=== PATIENT | female | born 1980 | race Caucasian/White ===

== ENCOUNTER → 2018-06-23 15:46 | Outpatient (CLI) | payer MEDICAID, SELFPAY ==
[2018-06-23 17:34] LABS: Amphetamine Urine VISTA NEGATIVE (<1000 ng/mL); Barbiturate Urine VISTA NEGATIVE (< 200 ng/mL); Benzodiazepine Urine VISTA NEGATIVE (< 200 ng/mL); Cocaine Urine VISTA NEGATIVE (< 300 ng/mL); Ecstacy Urine VISTA NEGATIVE (< 500 ng/mL); Methadone Urine VISTA NEGATIVE (< 300 ng/mL); PCP Urine VISTA NEGATIVE (< 25 ng/mL); THC Urine VISTA POSITIVE (< 50 ng/mL); Vista UDS pH Range 7
== END ==
PROVIDERS: Visit Provider Obstetrics & Gynecology
DX: N39.0 Urinary tract infection, site not specified (principal); R10.2 Pelvic and perineal pain
CPT/HCPCS: 80307; 87086

== ENCOUNTER 2018-07-20 14:37 | Emergency (ER) | payer MEDICAID, SELFPAY ==
[2018-07-20 14:38] VITALS: BP 127/77; PULSE 89; RESP 16; TEMP 35.9; O2SAT 100; BMI 25.6
--- NOTE | 2018-07-20 14:50 | RAD_ITS ---
STUDY: X-RAY - LEFT FOOT CLINICAL: Female, 37 years old. Pain following injury. TECHNIQUE: view(s) of the foot. COMPARISON: None. FINDINGS: Normal talus, calcaneus, and tarsal bones. Normal visualized subtalar, talonavicular, calcaneocuboid, tarsal and tarsometatarsal articulations. Normal metatarsi. Normal metatarsophalangeal joint of the great toe. Normal tibial and fibular sesamoid bones. Normal interphalangeal joint of the great toe. Normal phalanges of the great toe. Normal second through fifth metatarsophalangeal joints. Normal interphalangeal joints and phalanges of the lesser toes. The soft tissue structures are unremarkable. RAD/Foot min 3 Views IMPRESSION: Normal x-ray examination of the foot. Electronically Signed: Abdulkadir Kaufman MD at 15:39 EST Tel [phone], Service support ,
--- NOTE | 2018-07-20 15:22 | ED.VISSUMM ---
- ER Visit Summary Date of Service: 07/20/18 Chief Complaint: Left foot pain secondary to fall History of Present Illness: The patient is a 37 F who presents because of severe left foot pain after she fell down a couple of steps yesterday. She denies paresthesia, anesthesia or motor weakness. She states it hurts to put slipper on. There is no history of gout or pseudogout. She denies knee pain, hip pain upper extremity pain. She denied head trauma. She denies neck pain. Physical Examination: The left foot appears normal. There is pain on the poor proportion to tactile stimulus. DP and PT pulses are palpable. There is no soft tissue swelling, ecchymosis or contusion. There is no subungual hematoma of any toes. There is no pain to palpation of the right patella, joint line and there is no effusion. Full active range of motion of the knee. Test Results: Three-view x-ray of the foot was obtained per nursing protocol and interpreted by me as negative for fracture, subluxation, dislocation or foreign body. Emergency Department Course and Treatment: X-ray per nursing protocol Treatment Plan: Rest, ice, elevation and anti-inflammatories since there is no contraindication Disposition: Discharged home Impression: Left foot strain secondary to fall This note was generated with [employer] dictation software. It may contain incorrect words, spelling, and punctuation that were not noted in review of the chart prior to signing ED Disposition - Plan for ED Patient: Disposition: Home or Assisted Living Chief Complaint: Lower Extremity Injury Instructions: ED Sprain Foot Referrals: Care Physician,No Primary [Primary Care Provider] - Additional Instructions: Take either 4 Advil every 8 hours or 2 Aleve every 12 hours for the next 3-5 days for pain. Apply ice 6-8 times a day for 20-30 minutes per application.
== END 2018-07-20 15:28 | disposition home or self-care (01) ==
PROVIDERS: Emergency Provider Emergency Medicine
DX: S96.912A Strain of unspecified muscle and tendon at ankle and foot level, left foot, initial encounter (principal); W10.9XXA Fall (on) (from) unspecified stairs and steps, initial encounter; Y93.9 Activity, unspecified; Y92.9 Unspecified place or not applicable; Z72.0 Tobacco use
CPT/HCPCS: 73630; 99282

== ENCOUNTER 2019-01-04 18:54 | Emergency (ER) | payer MEDICAID, SELFPAY ==
[2019-01-04 18:55] VITALS: BP 150/90; PULSE 93; RESP 18; TEMP 36.2; O2SAT 100; BMI 25.4
--- NOTE | 2019-01-04 19:07 | CT_ITS ---
STUDY: CT SOFT TISSUE NECK WITH CONTRAST REASON FOR EXAM: Female, 38 years old. Possible epiglottitis RADIATION DOSAGE (If Supplied By Facility): CTDIvol = ( 17.19 ) mGy, DLP = ( 515 ) mGycm TECHNIQUE: The patient was scanned in a multi-detector CT scanner. High resolution transaxial imaging was performed following intravenous administration of 75ML IV Isovue 370. Sagittal and coronal images were reconstructed. Individualized dose optimization techniques were used for this CT. COMPARISON: None. FINDINGS: Normal bilateral parotid glands. 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 Normal bilateral parapharyngeal spaces. Normal bilateral carotid spaces. Normal bilateral sublingual and submandibular glands and spaces. Normal visualized nasopharynx. Normal retropharyngeal space. Normal perivertebral space. Normal visualized bilateral faucial tonsils. The visualized tongue, tongue base and oropharynx are normal. The visualized cervical lymph nodes (levels I-) are within normal size limits, and maintain normal morphology. There is no demonstrated solid or cystic mass lesion. There is no abnormal contrast enhancement. Normal epiglottis, bilateral vallecula and hypopharynx. There is very mild diffuse thickening of the epiglottis with effacement of the paraglottic fat planes which may be consistent with mild epiglottitis.. Normal visualized bilateral piriform sinuses, aryepiglottic folds, vocal cords, and arytenoid-cricoid articulations. Normal subglottic trachea. Normal bilateral lobes of the thyroid gland. Normal visualized pulmonary apices. Normal visualized paranasal sinuses. Normal visualized cervical spine. CT/Soft Tissue Neck WITH Contrast IMPRESSION: Findings which may be consistent with mild epiglottitis. Electronically Signed: Bang Padilla MD at 21:00 EDT , Service support ,
--- NOTE | 2019-01-04 19:11 | ED.DCSUM_ITS ---
- ER Visit Summary Date of Service: 01/04/19 Chief Complaint: Bite suspect insect left shoulder and hoarse voice History of Present Illness: The patient is a 38 F on she had some type of insect bite on her left shoulder which is gotten slightly swollen. And on Friday she is had hoarse voice. No trouble breathing. But states she has a very severe sore throat. She is had a prior tonsillectomy. She denies any severe severe allergic reactions in the past. No drooling. No fever. Physical Examination: Well-appearing female vital signs are stable afebrile. Pulse ox 9% on room air. No respiratory distress. H EENT exam normal. Posterior pharynx no erythema. No exudate. Tonsils have been removed. No trouble swallowing or breathing. No stridor or drooling. She does have a hoarse voice. The tongue and undersurface of her mouth are not swollen. Neck trachea midline. Mildly tender. No lymphadenopathy. No meningismus. Lungs clear to auscultation bilaterally. Heart regular rhythm no murmur. Abdomen soft nontender. Extremities moves all 4. Bilateral her left deltoid as the area was restarted. No abscess. No cellulitis. Normal range of motion bilaterally. Normal strength and sensation. Neurologically she is awake alert with no focal motor deficits. Test Results: CT soft tissue neck shows mild epiglottic swelling. Airways patent. No abscess. Read by the radiologist reviewed by me. Repeat exam patient is doing well at 2300. She was given IV Solu-Medrol prior to the CAT scan due to reported allergy to IV contrast. She was also given a racemic epinephrine aerosol which did help her a little bit. Gave her a glass of water she can drink it easily. It is uncomfortable but she has no trouble swallowing or breathing. There is currently no stridor. She is able to lie supine without any trouble breathing. She is able to drink water. Emergency Department Course and Treatment: Patient's hoarse voice and sore throat out of proportion to exam are somewhat concerning. Her posterior pharynx is normal there is no erythema or exudate. I will obtain imaging to rule out epiglottitis. Treatment Plan: I discussed with the patient at length. She does not want to be admitted. She has had this for the last 4 days. She will be placed on prednisone 40 mg a day for the next 5 days. EpiPen. Return if worse. Disposition: Discharge Impression: Localized allergic reaction left deltoid secondary to insect bite Epiglottic swelling secondary to allergic reaction This note was generated with [employer] dictation software. It may contain incorrect words, spelling, and punctuation that were not noted in review of the chart prior to signing ED Disposition - Plan for ED Patient: Disposition: Home or Assisted Living Instructions: ED Bite Sting Insect Local Allergic React Prescriptions: Prednisone [Deltasone] 40 mg PO DAILY 5 Days tab Additional Instructions: The steroids to decrease the swelling this should progressively get better. If you are getting worse or have trouble swallowing or breathing you need to return to the ER immediately. You have a local allergic reaction to your left arm from what I suspect was an insect bite and you have some mild swelling of your epiglottis seen on CAT scan. If you would get suddenly a lot worse he is a epinephrine pen.
[2019-01-04] MEDS: MethylPREDNISolone 125 MG/2 ML Vial IV (19:29)
[2019-01-04] MEDS: DiphenhydrAMINE 50 MG/ML Syringe 25 MG IV (19:29)
[2019-01-04 21:26] VITALS: BP 102/74; PULSE 78; RESP 16; O2SAT 98
[2019-01-04] MEDS: Racepinephrine HCl 0.5 ML VIAL.NEB. INHALATION (22:22)
[2019-01-04 22:23] VITALS: PULSE 86; RESP 16
[2019-01-04 22:40] VITALS: BP 115/76; PULSE 78; RESP 14; O2SAT 99
--- NOTE | 2019-01-04 23:09 | ED.DEP ---
ED Disposition - Plan for ED Patient: Disposition: Home or Assisted Living Instructions: ED Bite Sting Insect Local Allergic React Prescriptions: Prednisone [Deltasone] 40 mg PO DAILY 5 Days tab Additional Instructions: The steroids to decrease the swelling this should progressively get better. If you are getting worse or have trouble swallowing or breathing you need to return to the ER immediately. You have a local allergic reaction to your left arm from what I suspect was an insect bite and you have some mild swelling of your epiglottis seen on CAT scan. If you would get suddenly a lot worse he is a epinephrine pen.
--- NOTE | 2019-01-04 23:19 | ED.DEP ---
ED Disposition - Plan for ED Patient: Disposition: Home or Assisted Living Instructions: ED Bite Sting Insect Local Allergic React Prescriptions: Prednisone [Deltasone] 40 mg PO DAILY 5 Days tab Referrals: Rico Pickard MD [STAFF PHYSICIAN] - Additional Instructions: The steroids to decrease the swelling this should progressively get better. If you are getting worse or have trouble swallowing or breathing you need to return to the ER immediately. You have a local allergic reaction to your left arm from what I suspect was an insect bite and you have some mild swelling of your epiglottis seen on CAT scan. If you would get suddenly a lot worse he is a epinephrine pen.
[2019-01-04 23:34] VITALS: BP 118/67; PULSE 87; RESP 16; O2SAT 97
== END 2019-01-04 23:39 | disposition home or self-care (01) ==
PROVIDERS: Emergency Provider Emergency Medicine
DX: T63.481A Toxic effect of venom of other arthropod, accidental (unintentional), initial encounter (principal); T78.3XXA Angioneurotic edema, initial encounter; M25.412 Effusion, left shoulder; Y93.9 Activity, unspecified; Y92.9 Unspecified place or not applicable; Z72.0 Tobacco use
CPT/HCPCS: 70491; 94640; 96374; 96375; 99284; Q9967; A4216

== ENCOUNTER 2020-03-22 19:21 | Emergency (ER) | payer MEDICAID, SELFPAY ==
[2020-03-22 19:22] VITALS: BP 129/71; PULSE 90; RESP 16; TEMP 36.6; O2SAT 100; BMI 25.4
--- NOTE | 2020-03-22 19:54 | CT_ITS ---
STUDY: CT ABDOMEN AND PELVIS WITH CONTRAST REASON FOR EXAM: Female, 39 years old. PT STATED RLQ PAIN, ELEVATED WBC, HX TUBAL LIGATION, CSECTION X 2 RADIATION DOSAGE (If Supplied By Facility): CTDIvol = ( 12.79 ) mGy, DLP = ( 612.67 ) mGycm TECHNIQUE: Transaxial images were obtained from the dome of the diaphragm to the symphysis pubis without oral contrast. IV 100mL Isovue-300 was administered. Sagittal and coronal images were reconstructed. Individualized dose optimization techniques were used for this CT. COMPARISON: 10/05/2015 FINDINGS: The visualized lung bases are unremarkable. The visualized portions of the heart are within normal limits. Normal liver. Normal gallbladder and extrahepatic biliary system. Normal spleen. Normal pancreas. Normal bilateral adrenal glands. Normal right kidney. Normal left kidney. Normal visualized stomach. Normal small intestine. Normal colon. The appendix is visualized and appears normal. Normal abdominal aorta. Normal inferior vena cava. Normal retroperitoneum. Normal urinary bladder. Fallopian tube clips. A cluster of cysts are present in the right lower quadrant, likely ovarian and/or adnexal in origin, measuring in total up to 5 x 3.3 cm on image 83 of series 2. Mild free pelvic fluid. Normal abdominal wall. Normal osseous structures. CT/Abdomen/Pelvis W IV Cont ONLY IMPRESSION: Normal appendix. A cluster of cysts are present in the right lower quadrant, likely ovarian and/or adnexal in origin, measuring in total up to 5 x 3.3 centimeters. Mild free pelvic fluid. No evidence of acute intestinal pathology or acute obstructive uropathy. Electronically Signed: Ector Sol MD at 22:13 EDT Tel , Service support ,
[2020-03-22] MEDS: Morphine 4 MG/ML Syringe IV (20:10)
[2020-03-22] MEDS: Ondansetron 4 MG/2 ML Vial IV (20:10)
--- NOTE | 2020-03-22 20:11 | ED.DCSUM_ITS ---
History of Present Illness Chief Complaint: Abd Pain Informant: Patient Onset: Today Context: Sudden Onset Timing: Continuous Quality: Right lower quadrant abdominal pain Location: Right lower quadrant Current Severity: Mild Maximum Severity: Severe Worsened by: Walking Relieved by: Nothing Associated Symptoms: Nausea vomiting subjective fever Narrative: She is a 39-year-old woman with history of ovarian cysts and fibroids who presents with right lower quadrant abdominal pain that started this morning. There is associated with nausea and vomiting. She reports pain with walking and car ride. She reports decreased appetite. She denies URI symptoms. She denies cardiac or respiratory symptoms. She denies dysuria, frequency, urgency or hematuria. She denies vaginal discharge or bleeding. There is no history of trauma. She has not noted a rash. Prior similar symptoms: No Recent Illness/Hospitalization: No - Past Medical History (1) History of ovarian cyst Status: Acute (2) History of uterine fibroid Status: Acute Past Medical History - Allergies and Home Meds Allergies/Adverse Reactions: Allergies coconut Allergy (Verified 01/04/19 23:38) Other FACIAL SWELLING, EYES SWELL SHUT iodine Allergy (Verified 01/04/19 18:56) Hives KIWI Allergy (Uncoded 01/04/19 23:37) Other EYES SWELL SHUT STRAWBERRIES Adverse Reaction (Uncoded 01/04/19 23:37) Other TACHYCARDIA Primary Care Physician: Care Physician,No Primary [Primary Care Provider] - Prior records reviewed: Yes Surgical History: no surgical history Lives: Alone Smoking Status: Current every day smoker Alcohol: Rare Drugs: None Review of Systems General: Reports: Fever, Subjective. Denies: Chills, Malaise, Sweats, Weight loss Eyes: Denies: Visual changes - bilaterally, Blurred Vision - bilaterally ENT: Denies: Bilateral ear pain, Rhinorrhea, Sore throat Cardiovascular: Denies: Chest pain, Palpitations Respiratory: Denies: Dyspnea, Cough, Dyspnea on exertion Gastrointestinal: Reports: Abdominal pain, Nausea, Vomiting. Denies: Diarrhea, Constipation, Melena, Hematochezia Genitourinary: Denies: Dysuria, Hematuria, Frequency Musculoskeletal: Denies: Myalgias, Arthralgias, Neck pain, Back pain, Swelling, Extremity Pain, -, - Skin: Denies: Rash, Wounds Neurological: Denies: Headache, Weakness, Numbness Endocrine: Denies: Polyuria Hematologic: Denies: Easy bruising, Easy bleeding Allergy: Denies: Uticaria Physical Exam Vital Signs/Narrative: Vital Signs Temp Pulse Resp BP Pulse Ox 03/22/20 19:22 97.8 F 90 16 129/71 H 100 Inital Vital Signs reviewed: Yes General: Well nourished, Well developed, No Acute Distress Head: Normocephalic, Atraumatic Eyes: Perrl, EOMI. Negative for: Pale conjunctiva, Scleral icterus ENT: Moist mucous membranes, No rhinorrhea Neck: Supple, Nontender, No lymphadenopathy, No JVD Cardiovascular: Regular rate, Regular rhythm, No murmurs, Normal S1, Normal S2 Respiratory: No distress, CTA bilaterally, Chest nontender Abdomen: Soft, Nondistended, No masses, Tender, Guarding, Rebound tenderness, Hypoactive bowel sounds, Rovsig's sign. Negative for: Nontender, Normal bowel sounds, Hepatomegaly, Splenomegaly, Pulsatile mass, Ventral hernia, Inguinal hernia Rectal: Deferred Back: Nontender, Normal Inspection. Negative for: CVA tenderness Extremities: Nontender, No edema Skin: Normal color, No rash, No Trauma. Negative for: Cyanosis, Diaphoresis, Jaundice Neurological: Alert, Oriented x3, Cranial nerves II-XII grossly intact, Normal Strength, Normal Sensation Psychological: Normal affect, Normal Mood Diagnostic/Tx/Re-eval White count is elevated. test negative. UA negative. CT of the abdo men and pelvis with IV contrast only reveals dilated appendix with independent left. There is fluid noted in the pelvis on the right side with what appears to be a complex ovarian cyst as well. Awaiting formal interpretation by radiologist. Impressions Abdomen/Pelvis CT 03/22/20 19:54 IMPRESSION: Normal appendix. A cluster of cysts are present in the right lower quadrant, likely ovarian and/or adnexal in origin, measuring in total up to 5 x 3.3 centimeters. Mild free pelvic fluid. No evidence of acute intestinal pathology or acute obstructive uropathy. Electronically Signed: Ector Sol MD at 22:13 EDT Tel , Service support , 03/22/20 19:54 Abdomen/Pelvis W IV Cont ONLY [CT] Stat Laboratory Results 03/22/20 03/22/20 03/22/20 20:05 20:05 20:05 WBC 12.0 H RBC 4.19 L Hgb 10.0 L Hct 33.4 L MCV 79.7 L MCH 23.9 L MCHC 29.9 L RDW Std Deviation 50.9 H RDW Coeff of Vicenta 17.7 H Plt Count 339 MPV 8.5 Immature Gran % (Auto) 0.200 Neut % (Auto) 67.0 Lymph % (Auto) 24.5 Mcleod % (Auto) 7.5 Eos % (Auto) 0.6 Baso % (Auto) 0.2 Absolute Neuts (auto) 8.0 H Absolute Lymphs (auto) 2.95 Nucleated RBC % 0 Sodium 140 Potassium 3.6 Chloride 110 H Carbon Dioxide 26.0 Anion Gap 4 L BUN 9 Creatinine 0.75 Estim Creat Clear Calc 86.96 Est GFR (MDRD) Af Amer 111 Est GFR (MDRD) Non-Af 92 BUN/Creatinine Ratio 12.0 Glucose 91 Calcium 9.0 Serum , Qual NEGATIVE Urine Color Urine Clarity Urine pH Ur Specific [place] Urine Protein Urine Glucose (UA) Urine Ketones Urine Occult Blood Urine Nitrite Urine Bilirubin Urine Urobilinogen Ur Leukocyte Esterase Urine RBC Urine WBC Ur Squamous Epith Cells Urine Bacteria Urine Mucus 03/22/20 20:05 WBC RBC Hgb Hct MCV MCH MCHC RDW Std Deviation RDW Coeff of Vicenta Plt Count MPV Immature Gran % (Auto) Neut % (Auto) Lymph % (Auto) Mcleod % (Auto) Eos % (Auto) Baso % (Auto) Absolute Neuts (auto) Absolute Lymphs (auto) Nucleated RBC % Sodium Potassium Chloride Carbon Dioxide Anion Gap BUN Creatinine Estim Creat Clear Calc Est GFR (MDRD) Af Amer Est GFR (MDRD) Non-Af BUN/Creatinine Ratio Glucose Calcium Serum , Qual Urine Color Yellow Urine Clarity Clear Urine pH 7.0 Ur Specific [place] 1.010 Urine Protein Negative Urine Glucose (UA) Normal Urine Ketones Negative Urine Occult Blood Negative Urine Nitrite Negative Urine Bilirubin Negative Urine Urobilinogen Normal Ur Leukocyte Esterase Negative Urine RBC 0 SEEN Urine WBC 0 SEEN Ur Squamous Epith Cells 0 SEEN Urine Bacteria 0 SEEN Urine Mucus 0 SEEN We will treat for ovarian cyst. She was referred to [facility] for follow-up. - Medical Decision Making Diagnosis includes ovarian cyst, degenerative fibroid, appendicitis, mesenteric adenitis, regional enteritis. CT of the abdomen with IV contrast was ordered as well as appropriate blood work including test. Received a fluid bolus and was medicated with Zofran and morphine. After reviewing patient's past medical history and the fact that he will require admission for COPD he was treated with Eliquis 10 mg. ED Disposition - Plan for ED Patient: Disposition: Home or Assisted Living Diagnosis: Complex cyst of right ovary, Rupture of cyst of right ovary Instructions: ED Cyst Ovarian Prescriptions: Naproxen [Naprosyn] 500 mg PO BID #14 tab Transmission Status: Pending to [facility] Referrals: Care Physician,No Primary [Primary Care Provider] - Melanie Broussard MD [STAFF PHYSICIAN] - 3-5 Days if not improving
[2020-03-22 20:14] LABS: Bacteria 0 SEEN /hpf (None Seen); Mucous, Urine 0 SEEN /hpf (<or=2+); Red Blood Cells-Urine 0 SEEN /hpf (0-5); Squamous Epithelial Cells - UA 0 SEEN /hpf (5-10); White Blood Cells 0 SEEN /hpf (0-5)
[2020-03-22 20:18] LABS: Absolute Lymphocyte Count 2.95 X10^3/uL (0.83-4.51); Basophil# 0.03 X10^3/uL; Basophil% 0.2 % (0-1); Eosinophil# 0.07 X10^3/uL; Eosinophils% 0.6 % (0-5); Hematocrit 33.4 % (37-47); Lymphocyte # 2.95 X10^3/ul (4.0); Lymphocyte % 24.5 % (19-41); Mean Corp Hgb Conc 29.9 g/dL (32-36); Mean Corpuscular Hgb 23.9 pg (27.0-32.0); Mean Corpuscular Volume 79.7 fL (81-99); Mean Platelet Vol. 8.5 fl (6.2-12.0); Monocyte% 7.5 % (0-10); NRBC Flagged by Analyzer 0 % (0-5); Neutrophil # 8.04 X10^3/uL (2.7-7.7); Platelet Count 339 K/mm3 (150-450); RBC Distribution Width CV 17.7 % (11.6-14.6); RBC Distribution Width SD 50.9 fl (35.1-43.9); Red Blood Count 4.19 M/mm3 (4.2-5.4)
[2020-03-22 20:24] LABS: Color, Urine Yellow (Yellow); Glucose, Dipstick Normal (Normal); Ketone-Dipstick Negative (Negative); Leukocyte Esterase-Dipstick Negative /ul (Negative); Nitrite-Dipstick Negative (Negative); Occult Blood-Urine Negative /ul (Negative); Protein-Dipstick Negative (Negative); Urine Bilirubin Dipstick Negative (Negative); Urine Clarity Clear (Clear); Urine Urobilinogen Normal (Normal)
[2020-03-22 20:31] LABS: Internal QC Validated? YES +Cl - CLEAR BKGD; Pregnancy, Serum, hCG Quali. NEGATIVE Negative
[2020-03-22 20:34] LABS: Anion Gap 4 (5-15); BUN 9 mg/dL (7-18); Chloride 110 mmol/L (98-107); Creatinine, Serum 0.75 mg/dL (0.55-1.02); EST Glomerular Filtration Rate 92 mL/min (>60); Est Glom Filt Rate - Afr Amer 111 mL/min (>60); Estimated Creatinine Clearance 86.96 ml/min; Glucose 91 mg/dL (74-106); Potassium 3.6 mmol/L (3.5-5.1); Sodium Level 140 mmol/L (136-145)
[2020-03-22] MEDS: MethylPREDNISolone 125 MG/2 ML Vial 60 MG IV (20:49)
[2020-03-22] MEDS: DiphenhydrAMINE 50 MG/ML Syringe 25 MG IV (20:50)
[2020-03-22] MEDS: Famotidine 200 MG/20 ML MDV 20 MG in 0.9% Normal Saline (Pres. free 8 ML 300 MG IV (20:52)
[2020-03-22] MEDS: HYDROcodone Bitartrate/Apap 5/325 Tablet PO (22:46)
== END 2020-03-22 22:53 | disposition home or self-care (01) ==
PROVIDERS: Emergency Provider Emergency Medicine
DX: N83.201 Unspecified ovarian cyst, right side (principal); F17.200 Nicotine dependence, unspecified, uncomplicated
CPT/HCPCS: 74177; 80048; 81001; 84703; 85025; 96361; 96365; 96366; 96375; 99285; J7040; Q9967; A4216; J2405; J3490

== ENCOUNTER 2020-05-09 00:19 | Emergency (ER) | payer MEDICAID, SELFPAY ==
[2020-05-09 00:21] VITALS: BP 104/56; PULSE 82; RESP 16; TEMP 37.2; O2SAT 100; BMI 24.5
--- NOTE | 2020-05-09 00:27 | CT_ITS ---
STUDY: CT BRAIN WITHOUT CONTRAST REASON FOR EXAM: Female, 39 years old. AGUSTIN. NKI RADIATION DOSAGE (If Supplied By Facility): CTDIvol = ( 44.99 ) mGy, DLP = ( 796.11 ) mGycm TECHNIQUE: Transaxial CT imaging of the brain was performed without administration of intravenous contrast material. Individualized dose optimization techniques were used for this CT. COMPARISON: No relevant priors. FINDINGS: Normal soft tissue structures. Normal calvarium. Normal size ventricles and extra-axial spaces for the patient''s age. Normal white matter tracts of the cerebral hemispheres. Normal basal ganglia and thalami. Normal brainstem. Normal cerebellum. There is no intracranial hemorrhage. There are no findings of an acute ischemic infarction. Normal visualized paranasal sinuses. CT/Brain/Head without Contrast IMPRESSION: Normal unenhanced CT scan of the brain. Electronically Signed: John Loo MD at 1:08 EDT , Service support ,
[2020-05-09] MEDS: proCHLORPERazine 10 MG/2 ML Vial IV (00:36)
[2020-05-09] MEDS: DiphenhydrAMINE 50 MG/ML Syringe 25 MG IV (00:36)
[2020-05-09] MEDS: 0.9% Normal Saline 1,000 ML 999 ML IV (00:36)
--- NOTE | 2020-05-09 00:37 | ED.VIS.HA ---
History of Present Illness Chief Complaint: Headache Onset: Today Timing: Intermittent Quality: Similar Prior Headaches, Sharp, Throbbing Current Severity: Moderate Maximum Severity: Severe Associated Symptoms: Nausea, Vomiting, Preceding Aura, Photophobia Narrative: Patient presenting for evaluation secondary to headache. Patient reports that she has prior history of migraine headaches. She states that this started off relatively typical for her. She states that it is a waxing and waning right-sided throbbing sharp type pain. She reports that it started relatively suddenly this morning, but did not reach its maximum severity until about 6 PM tonight. It was not associated with any sort of head injury. No fevers or neck stiffness. Patient states that typically she can sit in a dark room and these headaches will resolve, but this headache was not going away. She did not take anything for it at home. Patient does endorse some auras. No numbness or weakness. No personal or family history of aneurysm. Review of systems otherwise negative. Past Medical History - Allergies and Home Meds Allergies/Adverse Reactions: Allergies coconut Allergy (Verified 05/09/20 00:20) Other FACIAL SWELLING, EYES SWELL SHUT iodine Allergy (Verified 05/09/20 00:20) Hives KIWI Allergy (Uncoded 05/09/20 00:20) Other EYES SWELL SHUT STRAWBERRIES Adverse Reaction (Uncoded 05/09/20 00:20) Other TACHYCARDIA Primary Care Physician: Care Physician,No Primary [Primary Care Provider] - Prior records reviewed: Yes Past Medical History: - - Migraine headaches Surgical History: no surgical history Smoking Status: Current every day smoker Alcohol: None Drugs: None Review of Systems All systems negative except as indicated General: Denies: Chills, Fever, Sweats Eyes: Reports: Visual changes - bilaterally ENT: Denies: Rhinorrhea, Sore throat Cardiovascular: Denies: Chest pain, Palpitations Respiratory: Denies: Dyspnea, Cough, Dyspnea on exertion Gastrointestinal: Reports: Nausea, Vomiting Genitourinary: Denies: Dysuria, Hematuria, Frequency Musculoskeletal: Denies: Back pain, Extremity Pain Skin: Denies: Rash, Wounds Neurological: Reports: Headache. Denies: Weakness, Parasthesia, Numbness Physical Exam Vital Signs/Narrative: Vital Signs Temp Pulse Resp BP Pulse Ox 05/09/20 00:21 98.9 F 82 16 104/56 L 100 Inital Vital Signs reviewed: Yes General: Well nourished, Well developed, - - Uncomfortable appearing female no acute distress Head: NC, AT, Temporary Artery Tenderness - Patient complains of pain over the entirety of the right side of the face with no specific localization over the temporal artery, but is tender in that area. No facial rashes noted. Eyes: Perrl, EOMI, - - Funduscopy was unable to be performed secondary to photophobia ENT: Moist mucous membranes, No rhinorrhea Neck: Supple, No Lymphadenopathy, No JVD, Nontender, No Meningismus Cardiovascular: Regular rate, Regular rhythm, No murmurs Respiratory: No distress, CTA bilaterally, Chest nontender Abdomen: Soft, Nontender, Nondistended, Normal bowel sounds Back: Nontender, Normal Inspection Extremities: Nontender, No edema Skin: Normal color, No rash Neuro: Alert, Oriented x3, Cranial nerves II-XII grossly intact, Normal Strength, Normal Sensation, Normal DTR, Normal Gait Psychological: Normal affect Diagnostic/Tx/Re-eval Clinical Impression(s) from Imaging Studies Brain CT 05/09/20 00:27 IMPRESSION: Normal unenhanced CT scan of the brain. Electronically Signed: John Loo MD at 1:08 EDT , Service support , Laboratory Data 05/09/20 00:35 ESR 36 H - Medical Decision Making Patient presented with a headache. Due to the patient having some localization of pain over hoahaoism ESR was obtained and was found to be negligibly elevated, not indicative of giant cell arteritis. Patient did also state that this was somewhat worse than her typical headaches, so CT scan was ordered and was likewise found to be negative. This was not thunderclap in origin, and does not seem to be a presentation that would be consistent with subarachnoid hemorrhage I do not feel that lumbar puncture is indicated. Patient was administered Compazine and Benadryl as well as fluids initially, and is continuing to have a headache on repeat evaluation at 0115. She was ordered Toradol at that time. Repeat evaluation of the patient at 0144 after administration of Toradol she states that she feels significantly improved. I feel that the patient is safe and appropriate for discharge at this point. She likely had a migraine headache. She was recommended conservative management at home. She will follow-up with primary care. ED Disposition - Plan for ED Patient: Disposition: Home or Assisted Living Diagnosis: Migraine headache Instructions: ED, Migraine (Classical) Referrals: Sana Deng [NON-STAFF] - As Needed
[2020-05-09 00:57] LABS: Erythrocyte Sedimentation Rate 36 mm/hr (0-20)
[2020-05-09] MEDS: Ketorolac 15 MG/ML Vial IV (01:16)
[2020-05-09 01:50] VITALS: BP 105/68; PULSE 68; RESP 15; O2SAT 98
== END 2020-05-09 01:54 | disposition home or self-care (01) ==
PROVIDERS: Emergency Provider Emergency Medicine
DX: G43.909 Migraine, unspecified, not intractable, without status migrainosus (principal); F17.200 Nicotine dependence, unspecified, uncomplicated
CPT/HCPCS: 70450; 85652; 99285; J7030

== ENCOUNTER 2020-07-20 17:06 | Emergency (ER) | payer MEDICAID, SELFPAY ==
[2020-07-20 17:07] VITALS: BP 149/93; PULSE 90; RESP 18; TEMP 36.6; O2SAT 100; BMI 24.0
--- NOTE | 2020-07-20 17:30 | RAD_ITS ---
STUDY: X-RAY CHEST REASON FOR EXAM: Female, 39 years old. fever, dizziness, chest and back pain TECHNIQUE: Single AP portable view of the chest. COMPARISON: 10/23/2015. FINDINGS: The lungs are clear and expanded. There is no demonstrated pleural abnormality. Normal size heart. Normal mediastinum and mercedes. Normal visualized pulmonary arteries. Normal visualized aortic arch and descending thoracic aorta. Normal visualized thoracic spine. Normal visualized ribs, clavicles, and shoulders. There is no demonstrated abnormality of the visualized soft tissue structures of the upper abdomen. RAD/Chest 1 View (Portable) IMPRESSION: Normal x-ray examination of the chest. Electronically Signed: Cory Pastrana MD at 18:23 EST , Service support ,
--- NOTE | 2020-07-20 17:32 | ED.DCSUM_ITS ---
History of Present Illness Chief Complaint: Back Informant: Patient Onset: Yesterday Activity at onset: Unknown - grad onset Timing: Continuous Quality: Pain - initially sharp in left axilla, now heaviness/pressure subster nal and diff pain in left mid-upper back Location: Substernal - see above Current Severity: Moderate Maximum Severity: Moderate Worsened By: Palpation. Not Worsened By: Exertion, Eating, Breathing, Coughing Relieved By: Nothing Associated Symptoms: Cough, Fever - subj. Negative for: Nausea, Vomiting, Diaphoresis, Dyspnea, Lightheadedness, Palpitations Narrative: Patient states she was advised to come here by urgent care due to having chest discomfort. She describes onset in her left axilla being sharp yesterday, and states it never went away, kind of changed and came around to her substernal area and now feels like it is pressure and heaviness. She denies any dyspnea or pleuritic nature. She also has some pain in her left mid back, around from her axillary area of pain, that hurts to lay on her touch. She denies any history of shingles or noticing any rash/lesions. She did have chickenpox when she was a child think she might of also been vaccinated. She is a smoker but otherwise healthy. She presents during the COVID-19 pandemic and has not had it yet, nor been tested, but notes that she did lose her sense of taste and smell since yesterday as well. She has had subjective fevers, myalgias, malaise, no dyspnea. No change in her chronic smoker's cough that she has mostly in the mornings. No GI symptoms. No contact with anyone with COVID-19 that she knows of. Past Medical History - Allergies and Home Meds Allergies/Adverse Reactions: Allergies coconut Allergy (Verified 07/20/20 17:10) Other FACIAL SWELLING, EYES SWELL SHUT iodine Allergy (Verified 07/20/20 17:10) Hives KIWI Allergy (Uncoded 07/20/20 17:10) Other EYES SWELL SHUT STRAWBERRIES Adverse Reaction (Uncoded 07/20/20 17:10) Other TACHYCARDIA Primary Care Physician: Care Physician,No Primary [Primary Care Provider] - Surgical History: no surgical history Smoking Status: Current some day smoker Review of Systems General: Reports: Chills, Fever, Malaise, Subjective. Denies: Sweats Eyes: Denies: Visual changes - bilaterally, Diplopia ENT: Reports: - - +loss of taste/smell. Denies: Bilateral ear pain, Rhinorrhea, Sore throat Cardiovascular: Reports: Chest pain. Denies: Palpitations Respiratory: Reports: Cough - chronic smoker's cough unchanged. Denies: Dyspnea, Sputum, Dyspnea on exertion Gastrointestinal: Denies: Abdominal pain, Nausea, Vomiting, Diarrhea, Melena, Hematochezia Genitourinary: Denies: Dysuria, Hematuria, Frequency Musculoskeletal: Reports: Myalgias, Back pain. Denies: Swelling Skin: Denies: Rash, Wounds Neurological: Denies: Headache, Weakness, Numbness Physical Exam Vital Signs/Narrative: Vital Signs Temp Pulse Resp BP Pulse Ox 07/20/20 17:07 97.8 F 90 18 149/93 H 100 Inital Vital Signs reviewed: Yes General: Well nourished, Well developed, No Acute Distress Head: Normocephalic, Atraumatic Eyes: Perrl, EOMI ENT: Moist mucous membranes, No rhinorrhea Neck: Supple, Nontender, No lymphadenopathy Cardiovascular: Regular rate, Regular rhythm, No murmurs Respiratory: No distress, CTA bilaterally, Chest tenderness - lateral left near and into axilla; no palpable LAD, no skin lesions/rash Abdomen: Soft, Nontender, Nondistended, Normal bowel sounds Back: Normal Inspection - w/ very superficial subjective mod-sv tenderness in skin that stops at midine, around T4 left dermatome. Negative for: CVA tenderness, Spinal tenderness Extremities: Nontender, No edema Skin: Normal color, No rash, No Trauma Neurological: Alert, Oriented x3, Cranial nerves II-XII grossly intact, Normal Strength, Normal Sensation Psychological: Normal affect, Normal Mood Diagnostic/Tx/Re-eval Chest X-Ray - ED: 1 View, Read by ED Physician, No Acute Disease Clinical Impression(s) from Imaging Studies Chest X-Ray 07/20/20 17:30 IMPRESSION: Normal x-ray examination of the chest. Electronically Signed: Cory Pastrana MD at 18:23 EST , Service support , - Rhythm Strip Rhythm Strip: Sinus Rhythm Rate: 73 Ectopy: None - EKG Initial EKG Interpretation: Sinus Rhythm, No Acute Injury Pattern - normal EKG Prior: Unchanged Treatment: GI Cocktail, - - naproxen ALBERT Risk: No Positive ALBERT Elements Score: 0 - Medical Decision Making Patient has symptoms of Covid, in addition to dermatomal sensory pain that is reproducible with very superficial palpation in approximately the left T4 distribution, incomplete as it does not go all the way to the sternum yet. She has no rash to suggest zoster although this is in the differential, as the rash may be delayed and not started yet. We also discussed that thoracic radiculopathy is in the differential diagnosis, although less likely especially without an injury. We performed an outpatient COVID-19 swab, in addition to EKG and troponin, which were normal, and the Covid swab will come back in 3-5 days. Patient was advised to quarantine until then, as she highly likely has Covid. She declared understanding of this, I gave her a GI cocktail and Naprosyn prior to discharge, I recommend anti-inflammatories as needed for the pain, and if she develops a zoster rash to return immediately. ED Disposition - Plan for ED Patient: Disposition: Home or Assisted Living Diagnosis: Chest pain, Sensory abnormality of thoracic dermatome distribution, Suspected 2019-nCoV infection Instructions: Coronavirus Disease 2019 (COVID-19): Overview, ED Chest Pain, Noncardiac, ED Shingles (Herpes Zoster) Referrals: Doctor,Your [STAFF PHYSICIAN] - 1 Week if not improving (or return to ER if you develop a rash left chest/back)
--- NOTE | 2020-07-20 17:32 | EKG12_ITS ---
Test Reason : DYSRHYTHMIA Blood Pressure : / mmHG Vent. Rate : 073 BPM Atrial Rate : 073 BPM P-R Int : 140 ms QRS Dur : 084 ms QT Int : 368 ms P-R-T Axes : 066 028 034 degrees QTc Int : 405 ms Normal sinus rhythm with sinus arrhythmia Normal ECG Confirmed by HERLINDA DEY, OLMAN ([id number]), supervising editor trailer STEVE TERRY ([id number]) on 07/24/2020 1:06:21 PM Referred By: BB Confirmed By:OLMAN PATE MD
[2020-07-20] MEDS: Naproxen 500 MG Tablet PO (19:17)
[2020-07-20] MEDS: Mag Hydrox/Al Hydrox/Simeth 30 ML UDC PO (19:17)
[2020-07-20 19:18] VITALS: BP 130/72; PULSE 68; RESP 15; O2SAT 98
== END 2020-07-20 19:18 | disposition home or self-care (01) ==
PROVIDERS: Emergency Provider Emergency Medicine
DX: R07.9 Chest pain, unspecified (principal); F17.200 Nicotine dependence, unspecified, uncomplicated; Z20.828 Contact with and (suspected) exposure to other viral communicable diseases
CPT/HCPCS: 71045; 87635; 93005; 99283; U0003

== ENCOUNTER 2020-11-04 22:12 | Emergency (ER) | payer MEDICAID, SELFPAY ==
[2020-11-04 22:12] VITALS: BP 121/87; PULSE 120; RESP 18; TEMP 36.2; O2SAT 99; BMI 26.6
[2020-11-04 22:38] LABS: Absolute Lymphocyte Count 2.25 X10^3/uL (0.83-4.51); Absolute Neutrophil Count 11.2 X10^3/uL (2.0-7.7); Basophil# 0.04 X10^3/uL; Basophil% 0.3 % (0-1); Eosinophil# 0.04 X10^3/uL; Eosinophils% 0.3 % (0-5); Hematocrit 34.1 % (37-47); Hemoglobin 10.5 g/dL (12.0-15.0); Lymphocyte # 2.25 X10^3/ul (4.0); Lymphocyte % 15.2 % (19-41); Mean Corp Hgb Conc 30.8 g/dL (32-36); Mean Corpuscular Hgb 24.3 pg (27.0-32.0); Mean Corpuscular Volume 78.9 fL (81-99); Mean Platelet Vol. 8.5 fl (6.2-12.0); Monocyte# 1.22 X10^3/uL; Monocyte% 8.2 % (0-10); NRBC Flagged by Analyzer 0 % (0-5); Neutrophil # 11.22 X10^3/uL (2.7-7.7); Neutrophil % 75.6 % (47-70); Platelet Count 379 K/mm3 (150-450); RBC Distribution Width CV 16.9 % (11.6-14.6); RBC Distribution Width SD 47.9 fl (35.1-43.9); Red Blood Count 4.32 M/mm3 (4.2-5.4); White Blood Count 14.8 K/mm3 (4.4-11.0)
[2020-11-04] MEDS: HYDROmorphone 1 MG/ML Syringe IV (22:40)
[2020-11-04] MEDS: 0.9% Normal Saline 1,000 ML 999 ML IV (22:40)
[2020-11-04] MEDS: Lidocaine 1% (20 ml mdv) 20 ML Vial INFILT (22:41)
[2020-11-04] MEDS: Ondansetron 4 MG/2 ML Vial IV (22:42)
--- NOTE | 2020-11-04 22:48 | ED.DCSUM_ITS ---
- ER Visit Summary Date of Service: 11/04/20 Chief Complaint: Left buttocks abscess History of Present Illness: The patient is a 39 F who is new seen by Dr. Waggoner for left buttocks abscess requiring drainage. Physical Examination: Dose of left buttocks Test Results: Pending Emergency Department Course and Treatment: Patient was informed she needs drainage of the abscess. She was informed what this entailed. The area was prepped. The abscess was anesthetized by local infiltration using 1% lidocaine and field block. Once patient had no sensation incision was made with 10 blade. There is a 2.5 cm incision. Purulent material drained freely from abscess cavity. Blunt dissection was undertaken with more purulent as well as bloody drainage. The cavity was irrigated with 100 cc of normal saline. Wick was pl aced to facilitate further drainage Treatment Plan: Incision and drainage of abscess and antibiotics for streptococcal and staphylococcal coverage. Disposition: Pending laboratory results Impression: [] This note was generated with [employer] dictation software. It may contain incorrect words, spelling, and punctuation that were not noted in review of the chart prior to signing <Taveras,Emmanuel - Last Filed: 11/04/20 23:01> - ER Visit Summary Date of Service: 11/04/20 Chief Complaint: Abscess History of Present Illness: The patient is a 39 F with no primary care physician. She reports she has an abscess in the right buttock that began 4 days ago. She complains of a burning pain is 10 of 10 severity. Is worsened by bumping it. She has not taken anything for pain. She reports that she had a fever for 101.6 degrees. She been nauseated and vomiting over the past 3 days as well. She is vomited 4 times today. No blood in her emesis. She does reports that she had diarrhea twice a day for the past 3 days as well. Review of systems patient complains of generalized weakness. Physical Examination: Vitals: Stable. Afebrile. General: Well-nourished and well-developed. Head: Normocephalic atraumatic. Neck: Supple, no lymphadenopathy. No JVD. Nontender. Cardiovascular: Tachycardic regular rhythm. No murmurs. Respiratory: No respiratory distress. Clear to auscultation bilaterally. Abdominal: Soft, nontender, nondistended, normal bowel sounds. No guarding, rebound, or peritoneal signs. Back: Nontender. Extremities: Nontender, no edema. Skin: In the gluteal cleft on the right side there is an approximately 6 cm indurated/fluctuant area with minimal surrounding erythema. Neurologic: Alert and oriented ?3. Cranial nerves II through XII are intact. Normal strength and sensation. Psych: Normal affect. Test Results: CBC shows a white count of 14.8 with 76 segmented neutrophils and 15 lymphocytes. H&H is 10.5 and 34.1. Chem-7 shows potassium of 3.2. Emergency Department Course and Treatment: Patient had an IV placed. She given 2 L normal saline. She was given Dilaudid, Zofran, and Toradol IV. She is resting more comfortably. She had an I&D performed. She tolerated this well. Treatment Plan: Patient will be discharged with Zofran, Colace, T[place]oli and doxycycline. Instructed follow-up with Dr. Bello in 2 days for a wound check. Return to the emergency department for any worsening symptoms. Disposition: To home in improved and stable condition. Impression: 1. Right gluteal abscess. 2. Incision and drainage. This note was generated with [employer] dictation software. It may contain incorrect words, spelling, and punctuation that were not noted in review of the chart prior to signing <Henok Waggoner - Last Filed: 11/04/20 23:12> ED Disposition <Emmanuel Taveras - Last Filed: 11/04/20 23:01> <Henok Waggoner - Last Filed: 11/04/20 23:12> - Plan for ED Patient: Instructions: ED Abscess Incision And Drainage Prescriptions: Docusate Sodium [Colace] 100 mg PO DAILY #20 capsule Prescription Printed Doxycycline 100 mg PO BID #14 capsule Prescription Printed Oxycodone HCl/Acetaminophen [Percocet 5/325] 1 tablet PO Q6H PRN PRN 3 Days #12 tab PRN Reason: Pain Prescription Printed Ondansetron [Zofran Odt] 4 mg PO Q8H PRN PRN #10 tablet PRN Reason: Nausea Prescription Printed Referrals: Dax Bello MD [STAFF PHYSICIAN] - 2 Days for wound check
[2020-11-04 22:51] LABS: Anion Gap 7 (5-15); BUN 7 mg/dL (7-18); BUN/Creat Ratio 9.2 RATIO (10-20); Calcium,Total 8.9 mg/dL (8.5-10.1); Chloride 104 mmol/L (98-107); Creatinine, Serum 0.76 mg/dL (0.55-1.02); EST Glomerular Filtration Rate 89 mL/min (>60); Est Glom Filt Rate - Afr Amer 108 mL/min (>60); Estimated Creatinine Clearance 85.82 ml/min; Glucose 101 mg/dL (74-106); Potassium 3.2 mmol/L (3.5-5.1); Sodium Level 137 mmol/L (136-145)
[2020-11-04] MEDS: Ketorolac 15 MG/ML Vial IV (23:27)
[2020-11-04 23:42] VITALS: BP 108/60; PULSE 107; RESP 18; O2SAT 96
== END 2020-11-04 23:45 | disposition home or self-care (01) ==
LOC: ED 22:48
PROVIDERS: Emergency Provider Emergency Medicine
DX: L02.31 Cutaneous abscess of buttock (principal); F17.200 Nicotine dependence, unspecified, uncomplicated
CPT/HCPCS: 10060; 80048; 85025; 96374; 96375; 99285; J7030; A4216; J2405

== ENCOUNTER 2020-11-05 18:10 | Observation (INO) | payer MEDICAID, SELFPAY ==
[2020-11-04 22:12] VITALS: BMI 26.6
[2020-11-05 18:12] VITALS: BP 128/71; PULSE 116; RESP 18; TEMP 39.3; O2SAT 98; BMI 27.3
--- NOTE | 2020-11-05 18:26 | ED.DCSUM_ITS ---
- ER Visit Summary Date of Service: 11/05/20 Chief Complaint: Fever with nausea and vomiting status post right buttock abscess I&D yesterday. History of Present Illness: The patient is a 39 F no significant past medical history prior C-sections and tonsillectomy. Patient had a right buttock abscess for about 4 days. Yesterday she presented to this emergency department and had an I&D done. Was discharged home on Keflex. Said she has had nausea vomiting yesterday and today. Has been unable to keep the antibiotic down. She is also having fevers between 101- 103 degrees. She denies any sore throat, chest pain or shortness of breath nor any abdominal pain. She denies any dysuria. Physical Examination: Middle-aged female no acute distress initial temperature is 102.8. She is tachycardic at 116. She does not look septic. She does not look toxic. H EENT exam unremarkable. Neck nontender no lymphadenopathy. Lungs clear to auscultation bilaterally. Heart tachycardic rate about 115 no murmur. Chest wall nontender. Abdomen soft nontender. Normal bowel sounds no peritoneal signs. Patient moving all 4 extremities. No rashes. No pustules. No edema. Back nontender. Her right buttock near the cleft medially there is an I&D. Is been packed. There is no significant cellulitis. Mild tenderness. Neurologically she is awake and alert with no focal motor deficits. Test Results: CBC white count 11.1 hemoglobin 9.5 baseline of 10. No bands. Chemistries unremarkable except potassium running low at 2.8. Normal gap normal BUN and creatinine. Liver enzymes unremarkable UA negative. Lactate 0.8. Chest x-ray no acute process read by myself and the radiologist. Portable 1 view. Emergency Department Course and Treatment: 39-year-old female status post incision and drainage of right buttock abscess yesterday. Has had nausea and vomiting has been unable to keep her antibiotics down. Should labs will be obtained. Should be treated IV fluids. Tylenol for fever and IV Toradol. IV Zofran for the nausea. Rule out sepsis versus other causes of the infection. She will also receive IV and oral potassium. Treatment Plan: Repeat exam patient is doing better at 2110. She is treated with IV fluids Toradol and Tylenol for fever. And IV clindamycin. She was also given Zofran for nausea. Discussed with the patient she states she does not feel good enough to be discharged home. I will speak to the hospitalist about admission. Disposition: Admission Impression: Status post incision and drainage of right buttock abscess Nausea and vomiting with fever Acute hypokalemia This note was generated with [employer] dictation software. It may contain incorrect words, spelling, and punctuation that were not noted in review of the chart prior to signing ED Disposition - Plan for ED Patient: Referrals: Care Physician,No Primary [Primary Care Provider] -
[2020-11-05] MEDS: 0.9% Normal Saline 1,000 ML 1000 ML IV (18:39)
[2020-11-05] MEDS: Ketorolac 30 MG/ML Syringe IV (18:42)
[2020-11-05] MEDS: Ondansetron 4 MG/2 ML Vial IV (18:42)
[2020-11-05] MEDS: Acetaminophen 500 MG Tablet 1000 MG PO (18:43)
[2020-11-05 18:46] LABS: Absolute Lymphocyte Count 0.79 X10^3/uL (0.83-4.51); Absolute Neutrophil Count 9.6 X10^3/uL (2.0-7.7); Basophil# 0.03 X10^3/uL; Basophil% 0.3 % (0-1); Eosinophil# 0.06 X10^3/uL; Eosinophils% 0.5 % (0-5); Hematocrit 31.1 % (37-47); Hemoglobin 9.5 g/dL (12.0-15.0); Lymphocyte # 0.79 X10^3/ul (4.0); Lymphocyte % 7.1 % (19-41); Mean Corp Hgb Conc 30.5 g/dL (32-36); Mean Corpuscular Hgb 24.2 pg (27.0-32.0); Mean Corpuscular Volume 79.3 fL (81-99); Mean Platelet Vol. 8.8 fl (6.2-12.0); Monocyte# 0.58 X10^3/uL; Monocyte% 5.2 % (0-10); NRBC Flagged by Analyzer 0 % (0-5); Neutrophil # 9.63 X10^3/uL (2.7-7.7); Neutrophil % 86.5 % (47-70); Platelet Count 296 K/mm3 (150-450); RBC Distribution Width CV 17.2 % (11.6-14.6); RBC Distribution Width SD 49.5 fl (35.1-43.9); Red Blood Count 3.92 M/mm3 (4.2-5.4); White Blood Count 11.1 K/mm3 (4.4-11.0)
--- NOTE | 2020-11-05 18:54 | RAD_ITS ---
STUDY: X-RAY CHEST REASON FOR EXAM: Female, 39 years old. fever TECHNIQUE: Frontal view of the chest COMPARISON: 20 July 2020 FINDINGS: The lungs are clear and expanded. There is no demonstrated pleural abnormality. Normal size heart. Normal mediastinum and mercedes. Normal visualized pulmonary arteries. Normal visualized aortic arch and descending thoracic aorta. Normal visualized thoracic spine. Normal visualized ribs, clavicles, and shoulders. There is no demonstrated abnormality of the visualized soft tissue structures of the upper abdomen. RAD/Chest 1 View (Portable) IMPRESSION: Normal x-ray examination of the chest. Electronically Signed: Efra Guzman MD at 19:11 EDT Tel , Service support ,
[2020-11-05 18:55] LABS: Mucous, Urine 0 SEEN /hpf (<or=2+); Red Blood Cells-Urine 0 SEEN /hpf (0-5)
[2020-11-05 18:58] LABS: Color, Urine Yellow (Yellow); Glucose, Dipstick Normal (Normal); Ketone-Dipstick Negative (Negative); Leukocyte Esterase-Dipstick 100 /ul (Negative); Nitrite-Dipstick Negative (Negative); Occult Blood-Urine 50 /ul (Negative); Protein-Dipstick 15 mg/dl (Negative); Urine Bilirubin Dipstick Negative (Negative); Urine Clarity Sl. Cloudy (Clear); Urine Urobilinogen Normal (Normal)
[2020-11-05 19:06] LABS: Bacteria RARE /hpf (None Seen); Squamous Epithelial Cells - UA 0-5 SEEN /hpf (5-10); White Blood Cells 0-5 SEEN /hpf (0-5)
[2020-11-05 19:09] LABS: Lactic Acid 0.8 mmol/L (0.4-1.9)
[2020-11-05 19:10] LABS: ALB/GLOB Ratio 0.8 RATIO (0.9-2.4); AST(SGOT) 42 U/L (15-37); Alanine Aminotransfer ALT/SGPT 35 U/L (13-56); Albumin, Serum 3.3 g/dL (3.2-5.0); Alkaline Phosphatase 82 U/L (45-117); Anion Gap 7 (5-15); BUN 5 mg/dL (7-18); BUN/Creat Ratio 7.1 RATIO (10-20); Calcium,Total 8.3 mg/dL (8.5-10.1); Chloride 104 mmol/L (98-107); EST Glomerular Filtration Rate 98 mL/min (>60); Est Glom Filt Rate - Afr Amer 119 mL/min (>60); Estimated Creatinine Clearance 93.17 ml/min; Glucose 97 mg/dL (74-106); Potassium 2.8 mmol/L (3.5-5.1); Protein, Total 7.3 g/dL (6.4-8.2); Sodium Level 136 mmol/L (136-145)
[2020-11-05 19:23] VITALS: BP 103/62; PULSE 101; RESP 17; TEMP 37.3; O2SAT 100
--- NOTE | 2020-11-05 21:32 | HP.PCM_ITS ---
Problem List (1) Abscess Status: Acute (2) Sepsis Status: Acute (3) History of ovarian cyst Status: Chronic (4) History of uterine fibroid Status: Chronic History of Present Illness Date of Admission: 11/05/20 Chief Complaint: Right gluteal boil The patient is a 39 year old F with a significant history of tobacco abuse who presents emergency department with a 4-day history of right gluteal boil. Of note patient was asked the emergency department a day before this presentation. The boil was incised; drained and packed. Patient was discharged home on p.o. antibiotics; pain medication; antiemetics and bowel regimen. However patient returned on the day of presentation (11/06/2019) with a fever. Reportedly her home temperature was 101 Fahrenheit. Further she had headache; nausea and vomiting. Past Medical History Past Medical History (Chronic Problems): Chronic Problems History of ovarian cyst (Chronic) History of uterine fibroid (Chronic) Allergies coconut Allergy (Verified 11/05/20 18:11) Other FACIAL SWELLING, EYES SWELL SHUT iodine Allergy (Verified 11/05/20 18:11) Hives KIWI Allergy (Uncoded 11/05/20 18:11) Other EYES SWELL SHUT STRAWBERRIES Adverse Reaction (Uncoded 11/05/20 18:11) Other TACHYCARDIA Home Medications: Ambulatory Orders Medication Instructions Recorded Docusate Sodium [Colace] 100 mg PO DAILY #20 capsule 11/04/20 Doxycycline 100 mg PO BID #14 capsule 11/04/20 Ondansetron [Zofran Odt] 4 mg PO Q8H PRN PRN #10 tablet 11/04/20 Oxycodone HCl/Acetaminophen 1 tablet PO Q6H PRN PRN 3 Days #12 11/04/20 [Percocet 5/325] tab Surgical History: tonsillectomy, - - . Laparoscopic surgery for ovarian abscess Smoking Status: Current every day smoker Tobacco Use: Cigarettes - *Family History Maternal History Items: Cancer, - - Her mother had bipolar disease; schizophrenia; restless leg syndrome and Parkinson's disease. Review of Systems Constitutional: Reports: Chills, Fever. Denies: Weight Change HEENT: Denies: Head Aches, Sinus Congestion, Sinus Drainage Cardiovascular: Denies: Chest Pain, Palpitations Respiratory: Denies: Cough, Shortness of breath at rest, Sputum production Gastrointestinal: Reports: Nausea, Vomiting. Denies: Abdominal Pain Genitourinary: Denies: Dysuria Musculoskeletal: Denies: Joint Pain, Joint Tenderness Skin: Reports: Wounds - Surgical incision from abscess. Denies: Rash Neurological: Denies: Numbness, Tingling, Focal weakness Psychiatric: Denies: Anxiety, Depression, Homicidal Ideations, Suicidal Ideations Hematologic/ Lymphatic: Denies: Easy Bruising, Easy Bleeding VTE Information - Inpt Only VTE Present on Admission: No VTE Mechan Device Prophylaxis: None VTE Pharm Prophylaxis ordered?: Yes Patient Problems: Active and Suspected Problems Abscess (Acute) Sepsis (Acute) - Physical Exam Vitals/I&O's: Vital Signs Temp Pulse Resp BP Pulse Ox 99.1 F 101 H 17 103/62 100 11/05/20 19:23 11/05/20 19:23 11/05/20 19:23 11/05/20 19:23 11/05/20 19:23 Oxygen Delivery Method Room Air Weight: 72.3 kg Body Mass Index (BMI) 27.3 Intake and Output for Last 24 Hours 11/03/20 11/04/20 11/05/20 23:59 23:59 23:59 Intake Total 1106 / 1106 Balance 1106 / 1106 General: Alert, Oriented x3, Cooperative HEENT: Atraumatic, PERRLA, EOMI, Normocephalic Neck: Supple, No JVD, Negative Carotid Bruits Lungs: Clear to auscultation, Normal air movement Cardiovascular: Regular rate, Normal S1, Normal S2, No murmurs, Tachycardic Abdomen: Bowel Sounds Present, Soft, Non Tender Extremities: No edema, Capillary Refill Less than 3 Seconds Skin: - - Surgical incision in the right gluteal fold with a packed dressing Musculoskeletal: No Tenderness to Palpation of Joints or Extremities Neurological: Cranial nerves II-XII grossly intact Psych/Mental Status: Normal Affect, Appropriate Laboratory Results 11/05/20 18:34: WBC 11.1 H, RBC 3.92 L, Hgb 9.5 L, Hct 31.1 L, MCV 79.3 L, MCH 24.2 L, MCHC 30.5 L, RDW Std Deviation 49.5 H, RDW Coeff of [place] 17.2 H, Plt Count 296, MPV 8.8, Immature Gran % (Auto) 0.400, Neut % (Auto) 86.5 H, Lymph % (Auto) 7.1 L, [place] % (Auto) 5.2, Eos % (Auto) 0.5, Baso % (Auto) 0.3, Absolute Neuts (auto) 9.6 H, Absolute Lymphs (auto) 0.79 L, Nucleated RBC % 0 11/05/20 18:34: Sodium 136, Potassium 2.8 L, Chloride 104, Carbon Dioxide 25.0, Anion Gap 7, BUN 5 L, Creatinine 0.70, Estim Creat Clear Calc 93.17, Est GFR (M DRD) Af Amer 119, Est GFR (MDRD) Non-Af 98, BUN/Creatinine Ratio 7.1 L, Glucose 97, Calcium 8.3 L, Total Bilirubin 0.40, AST 42 H, ALT 35, Alkaline Phosphatase 82, Total Protein 7.3, Albumin 3.3, Globulin 4.0, Albumin/Globulin Ratio 0.8 L 11/05/20 18:34: Lactic Acid 0.8 11/05/20 18:45: Urine Color Yellow, Urine Clarity Sl. Cloudy, Urine pH 6.0, Ur Specific [place] 1.010, Urine Protein 15 H, Urine Glucose (UA) Normal, Urine Ketones Negative, Urine Occult Blood 50 H, Urine Nitrite Negative, Urine Bilirubin Negative, Urine Urobilinogen Normal, Ur Leukocyte Esterase 100 H, Urine RBC 0 SEEN, Urine WBC 0-5 SEEN, Ur Squamous Epith Cells 0-5 SEEN, Urine Bacteria RARE, Urine Mucus 0 SEEN Current Medications Potassium Chloride () 10 meq in 100 mls @ 100 mls/hr IV BOLUS Q1H JEFE Stop: 11/05/20 23:14 Assessment/Plan All Active Problems Abscess (Acute) Sepsis (Acute) Patient is a 39 year old F with a significant history of tobacco abuse who presents emergency department with a 4-day history of right gluteal boil; headache; nausea and vomiting; and with an objective temperature of 102.8F; tachycardia, white count of 11.1 and potassium level of 2.8. Sepsis secondary to gluteal abscess SIRS: criteria patient with T-max of 102.8 Fahrenheit; heart rate of more than 90. I& D a day before presentation. On this new presentation patient was started on IV clindamycin. IV clindamycin will be continued. Received Toradol IV at emergency department and treated on as needed basis. Zofran for antiemetics ordered. Supportive treatment with IV fluids with potassium. Continue wet to dry dressing to incised abscess; change bid Hypokalemia Presented potassium was 2.8. Likely secondary to nausea and vomiting P.o. potassium and IV ordered emergency department. Normal saline with potassium ordered. Tobacco abuse Counseled Declined nicotine patch. DVT prophylaxis Subcutaneous Lovenox ordered. Inpatient E&M: [id number] Init Hosp L3
[2020-11-05 21:40] VITALS: BP 101/62; PULSE 87; RESP 18; TEMP 36.6; O2SAT 96
[2020-11-05] MEDS: Potassium Chloride Oral Tablet 20 MEQ 40 MEQ PO (21:44)
[2020-11-05] MEDS: Potassium Chloride 10mEq/100mL 10 MEQ/100 ML IV.SOLN. 100 MEQ IV BOLUS ×2 (21:46→23:20)
[2020-11-05 22:06] VITALS: BMI 27.1
[2020-11-05 22:15] VITALS: BMI 27.1
[2020-11-05 22:52] VITALS: BP 98/59; PULSE 83; RESP 16; TEMP 36.8; O2SAT 99
[2020-11-05] MEDS: 0.9% Saline Lock 10 ML Syringe IV (23:23)
[2020-11-06] MEDS: Ketorolac 15 MG/ML Vial IV ×2 (03:52→11:17)
[2020-11-06 04:52] VITALS: BP 121/71; PULSE 82; RESP 16; TEMP 37.2; O2SAT 99
[2020-11-06 06:08] LABS: Absolute Lymphocyte Count 0.69 X10^3/uL (0.83-4.51); Basophil# 0.02 X10^3/uL; Basophil% 0.3 % (0-1); Eosinophil# 0.13 X10^3/uL; Eosinophils% 2.1 % (0-5); Hematocrit 30.2 % (37-47); Hemoglobin 8.9 g/dL (12.0-15.0); Lymphocyte # 0.69 X10^3/ul (4.0); Lymphocyte % 11.1 % (19-41); Mean Corp Hgb Conc 29.5 g/dL (32-36); Mean Corpuscular Volume 81.4 fL (81-99); Mean Platelet Vol. 8.5 fl (6.2-12.0); Monocyte# 0.41 X10^3/uL; Monocyte% 6.6 % (0-10); NRBC Flagged by Analyzer 0 % (0-5); Neutrophil # 4.96 X10^3/uL (2.7-7.7); Neutrophil % 79.7 % (47-70); Platelet Count 233 K/mm3 (150-450); RBC Distribution Width CV 17.2 % (11.6-14.6); RBC Distribution Width SD 51.1 fl (35.1-43.9); Red Blood Count 3.71 M/mm3 (4.2-5.4); White Blood Count 6.2 K/mm3 (4.4-11.0)
[2020-11-06 06:47] LABS: Anion Gap 9 (5-15); BUN 6 mg/dL (7-18); BUN/Creat Ratio 9.2 RATIO (10-20); Chloride 110 mmol/L (98-107); Creatinine, Serum 0.65 mg/dL (0.55-1.02); EST Glomerular Filtration Rate 107 mL/min (>60); Est Glom Filt Rate - Afr Amer 129 mL/min (>60); Estimated Creatinine Clearance 100.34 ml/min; Glucose 134 mg/dL (74-106); Potassium 3.2 mmol/L (3.5-5.1); Sodium Level 140 mmol/L (136-145)
[2020-11-06 07:20] VITALS: O2SAT 99
--- NOTE | 2020-11-06 09:20 | CASEMGMT ---
Pt screened using [facility] Palliative Care Tool. Pt did not meet criteria.
[2020-11-06] MEDS: Docusate Sodium 100 MG Capsule PO (10:06)
[2020-11-06 10:15] VITALS: BP 100/62; PULSE 79; RESP 18; TEMP 37; O2SAT 98
--- NOTE | 2020-11-06 11:10 | CASEMGMT ---
ARMANDO WHALEY Assessment: Face to Face with patient for initial transition planning/care coordination assessment. ARMANDO WHALEY introduced self and role at [facility], pt voices understanding and consents to assessment. Pt is lying in bed in no distress. Pt is A/Ox4 and answers all questions appropriately at this time. Care providers, pharmacy, and demographics verified/updated. Admitting Dx: sepsis secondary to gluteal abscess PCP: Pt denies having a PCP. Provided a list of local PCP's and gave to pt. Specialists: Denies. Preferred Pharmacy: [facility] Insurance:[employer] Prescription Benefit:yes Living Will/DPOA: Pt reports she does not have a LW but that she does have a DPOA who is a friend, Gena Kohli. LNOK: friends, Gena and Gurwinder Kohli Living Arrangements:Pt lives with her two children in a ground level apt. She states there is one step to enter and 13 steps with a rail to use the bathroom. Pt denies concerns at home. Pt reports she is I in ADL's. Transportation: Pt does not drive. Her friends drive her or she uses transit. She denies transportation concerns. DME/HHC/SNF: Pt denies having any DME in the home. She denies having HHC or SNF stays previously. Pt states no concerns with going home at time of dc. She states she does have a friend who can do wound care. Pt states no further concerns/needs. CM to follow for any further dc planning/needs. Advised pt to ask for CM if any further questions/concerns/ needs arise, voices understanding. Pt goal: Home Plan: Home. CM to follow for HHC needs. Pt is agreeable to HHC if needed.
[2020-11-06] MEDS: 0.9% Saline Lock 10 ML Syringe IV (11:18)
--- NOTE | 2020-11-06 14:18 | PCM.PN.HOSP ---
Patient Problems: Active and Suspected Problems Abscess (Acute) Sepsis (Acute) Subjective: Patient is a pleasant 39-year-old female who is resting comfortably in bed, alert and oriented x3. Patient reports improvement of symptoms from admission however still reports mild headache, nausea, vomiting. Denies fever, diarrhea, chest pain, shortness of breath, palpitations. Vitals/I&O's: Vital Signs Temp Pulse Resp BP Pulse Ox 98.6 F 79 18 100/62 98 11/06/20 10:15 11/06/20 10:15 11/06/20 10:15 11/06/20 10:15 11/06/20 10:15 Oxygen Delivery Method Room Air Weight: 158 lb 11.725 oz Body Mass Index (BMI) 27.1 Intake and Output for Last 24 Hours 11/04/20 11/05/20 11/06/20 23:59 23:59 23:59 Intake Total 1206 / 1506 2268.5 / 2268.5 Balance 1206 / 1506 2268.5 / 2268.5 General: Alert, Oriented x3, Cooperative HEENT: Atraumatic, PERRLA, EOMI, Normocephalic Neck: Supple, No JVD, Negative Carotid Bruits Lungs: Clear to auscultation, Normal air movement Cardiovascular: Regular rate, No murmurs Abdomen: Bowel Sounds Present, Soft, Non Tender Extremities: No edema, Capillary Refill Less than 3 Seconds Skin: No rashes, No breakdown Musculoskeletal: No Tenderness to Palpation of Joints or Extremities Neurological: Cranial nerves II-XII grossly intact Psych/Mental Status: Normal Affect, Appropriate Laboratory Results 11/05/20 18:34: WBC 11.1 H, RBC 3.92 L, Hgb 9.5 L, Hct 31.1 L, MCV 79.3 L, MCH 24.2 L, MCHC 30.5 L, RDW Std Deviation 49.5 H, RDW Coeff of Vicenta 17.2 H, Plt Count 296, MPV 8.8, Immature Gran % (Auto) 0.400, Neut % (Auto) 86.5 H, Lymph % (Auto) 7.1 L, [place] % (Auto) 5.2, Eos % (Auto) 0.5, Baso % (Auto) 0.3, Absolute Neuts (auto) 9.6 H, Absolute Lymphs (auto) 0.79 L, Nucleated RBC % 0 11/05/20 18:34: Sodium 136, Potassium 2.8 L, Chloride 104, Carbon Dioxide 25.0, Anion Gap 7, BUN 5 L, Creatinine 0.70, Estim Creat Clear Calc 93.17, Est GFR (MDRD) Af Amer 119, Est GFR (MDRD) Non-Af 98, BUN/Creatinine Ratio 7.1 L, Glucose 97, Calcium 8.3 L, Total Bilirubin 0.40, AST 42 H, ALT 35, Alkaline Phosphatase 82, Total Protein 7.3, Albumin 3.3, Globulin 4.0, Albumin/Globulin Ratio 0.8 L 11/05/20 18:34: Lactic Acid 0.8 11/05/20 18:45: Urine Color Yellow, Urine Clarity Sl. Cloudy, Urine pH 6.0, Ur Specific [place] 1.010, Urine Protein 15 H, Urine Glucose (UA) Normal, Urine Ketones Negative, Urine Occult Blood 50 H, Urine Nitrite Negative, Urine Bilirubin Negative, Urine Urobilinogen Normal, Ur Leukocyte Esterase 100 H, Urine RBC 0 SEEN, Urine WBC 0-5 SEEN, Ur Squamous Epith Cells 0-5 SEEN, Urine Bacteria RARE, Urine Mucus 0 SEEN 11/06/20 06:02: WBC 6.2, RBC 3.71 L, Hgb 8.9 L, Hct 30.2 L, MCV 81.4, MCH 24.0 L, MCHC 29.5 L, RDW Std Deviation 51.1 H, RDW Coeff of [place] 17.2 H, Plt Count 233, MPV 8.5, Immature Gran % (Auto) 0.200, Neut % (Auto) 79.7 H, Lymph % (Auto) 11.1 L, [place] % (Auto) 6.6, Eos % (Auto) 2.1, Baso % (Auto) 0.3, Absolute Neuts (auto) 5.0, Absolute Lymphs (auto) 0.69 L, Nucleated RBC % 0 11/06/20 06:02: Sodium 140, Potassium 3.2 L, Chloride 110 H, Carbon Dioxide 21.0, Anion Gap 9, BUN 6 L, Creatinine 0.65, Estim Creat Clear Calc 100.34, Est GFR (MDRD) Af Amer 129, Est GFR (MDRD) Non-Af 107, BUN/Creatinine Ratio 9.2 L, Glucose 134 H, Calcium 8.0 L Current Medications Docusate Sodium (Docusate Sodium 100 Mg Capsule) 100 mg PO DAILY [facility] Last Admin: 11/06/20 10:06 Dose: 100 mg Documented by: Enoxaparin Sodium (Enoxaparin 40 Mg/0.4 Ml Syringe) 40 mg SC DAILY [facility] Last Admin: 11/06/20 10:06 Dose: Not Given Documented by: Potassium Chloride/Sodium Chloride () 1,000 mls @ 75 mls/hr IV .[id number] [facility] Last Infusion: 11/06/20 14:01 Dose: 75 mls/hr Documented by: Sodium Chloride () 250 mls @ 15 mls/hr IV .[id number] PRN PRN Reason: Saline Flush Sodium Chloride () 250 mls @ 15 mls/hr IV .[id number] PRN PRN Reason: Additional IVPB Infusion Ampicillin Sodium/Sulbactam (Sodium 3 gm/ Sodium Chloride) 112 mls @ 150 mls/hr IV Q6 [facility] Last Infusion: 11/06/20 12:57 Dose: Infused Documented by: Ketorolac Tromethamine (Ketorolac 15 Mg/Ml Vial) 15 mg IV Q6H PRN PRN PRN Reason: pain 4-10 Stop: 11/11/20 02:01 Last Admin: 11/06/20 11:17 Dose: 15 mg Documented by: Ondansetron HCl (Ondansetron 4 Mg/2 Ml Vial) 4 mg IV Q8H PRN PRN PRN Reason: NAUSEA/VOMITING Senna/Docusate Sodium (Senna/Docusate Sodium 1 Tablet) 2 tablet PO BID PRN PRN PRN Reason: Constipation Sodium Chloride (0.9% Saline Lock 10 Ml Syringe) 10 - 40 ml IV UD PRN PRN Reason: SALINE FLUSH Last Admin: 11/06/20 11:18 Dose: 10 ml Documented by: Medical Necessity - Tobacco Use Smoking Status: Current every day smoker Tobacco Use: Cigarettes Assessment/Plan All Active Problems Abscess (Acute) Sepsis (Acute) Patient is a 39-year-old female who presented to the ED on 11/05/2020 with a 4-day history of a right gluteal abscess. On admission patient endorsed fever, headache, nausea, vomiting. On my exam patient reported improvement of the symptoms however still endorsed mild headache, nausea, vomiting, weakness. Abscess was incised in the ED and repacked. Upon my examination packing around abscess was unremarkable. No redness, warmth, induration was observed around the packing material. Patient was also found to be hypokalemic at admission, patient's potassium is still low however trending up. Anticipating further improvement in symptoms and potassium, patient will will most likely be discharged tomorrow. 1) Sepsis secondary to gluteal abcess Assessment - Tachycardia and fever have resolved; currently 79 and 98.6 ?F as of this morning - Dressing around abscess appears unremarkable; no redness, swelling, induration, warmth observed - Clindamycin discontinued due to poor anaerobic coverage Plan - Patient initiated on Unasyn 2)Hypokalemia Assessment -Potassium still low at 3.2, however trending upwards Plan - Continue infusion of potassium - Continue to monitor BMP DVT Prophylaxis - SC Lovenox Patient seen by Thien Freeman PA-C, under the supervision of Dr. Zimmerman
--- NOTE | 2020-11-06 16:12 | DCINST_ITS ---
- Discharge Diagnoses Current Active Problems: Current Active and Chronic Problems History of ovarian cyst (Chronic) History of uterine fibroid (Chronic) Abscess (Acute) Sepsis (Acute) You will use the following diet at home:: No restrictions Your food should be the consistency of: Regular Your liquids should be the consistency of: Regular/Thin Discharge Activity: Return to Normal Activity Weight Bearing Status: Full weight bearing Allergies/Adverse Reactions: Allergies coconut Allergy (Verified 11/05/20 18:11) Other FACIAL SWELLING, EYES SWELL SHUT iodine Allergy (Verified 11/05/20 18:11) Hives KIWI Allergy (Uncoded 11/05/20 18:11) Other EYES SWELL SHUT STRAWBERRIES Adverse Reaction (Uncoded 11/05/20 18:11) Other TACHYCARDIA Medications to take at Discharge Docusate Sodium [Colace] 100 mg PO DAILY #20 capsule 11/04/20 Ondansetron [Zofran Odt] 4 mg PO Q8H PRN PRN #10 tablet 11/04/20 Oxycodone HCl/Acetaminophen [Percocet 5-325] 1 tablet PO Q6H PRN PRN 3 Days #12 tab 11/04/20 Amox/Clavulanate Tablet [Augmentin Tablet] 875 mg PO BIDAC #14 tab 11/06/20 The following prescriptions were given: Amox/Clavulanate Tablet [Augmentin Tablet] 875 mg PO BIDAC #14 tab Transmission Status: Pending to [facility] Primary Care Physician: Care Physician,No Primary [Primary Care Provider] - Test Results: Test results from this visit will be discussed in further detail at your follow- up appointment, if applicable. Please Follow Up With: Dax Bello MD When:
[2020-11-06 16:33] VITALS: BP 109/67; PULSE 77; RESP 18; TEMP 36.4; O2SAT 97
--- NOTE | 2020-11-06 17:08 | PCM.DC.SUM ---
Discharge Date and Diagnosis - Problem List Patient Problems: Active and Suspected Problems Abscess (Acute) Sepsis (Acute) Date of Admission: 11/05/20 Date of Discharge: 11/06/20 - Primary Discharge Diagnosis Acute Problems: Active Problems Abscess (Acute) Sepsis (Acute) - Secondary Discharge Diagnosis Chronic Problems: Chronic Problems History of ovarian cyst (Chronic) History of uterine fibroid (Chronic) Hospital Course and Treatment Imaging Results: Clinical Impression(s) from Imaging Studies Chest X-Ray 11/05/20 18:54 IMPRESSION: Normal x-ray examination of the chest. Electronically Signed: Efra Guzman MD at 19:11 EDT Tel , Service support , Summary of Care Provided: Patient is a 39-year-old female who presented to the ED on 11/05/2020 with a 4-day history of a right gluteal abscess. On admission patient endorsed fever, headache, nausea, vomiting. On my exam patient reported improvement of the symptoms however still endorsed mild headache, nausea, vomiting, weakness. Abscess was incised in the ED and repacked. Upon my examination packing around abscess was unremarkable. No redness, warmth, induration was observed around the packing material. Vital signs unremarkable. CBC and BMP unremarkable. patient was also found to be hypokalemic at admission, patient's potassium is still low however trending up. Patient will be discharged today. 1) Sepsis secondary to gluteal abcess Assessment - Tachycardia and fever have resolved; currently 79 and 98.6 ?F as of this morning - Dressing around abscess appears unremarkable; no redness, swelling, induration, warmth observed - Clindamycin discontinued due to poor anaerobic coverage Plan - Patient discharged on Augmentin 2)Hypokalemia Assessment -Potassium 3.2, trending upwards -EKG unremarkable Plan - Resolved DVT Prophylaxis - SC Lovenox Patient seen by Thien Freeman PA-C, under the supervision of Dr. Zimmerman Patient Problems: Active and Suspected Problems Abscess (Acute) Sepsis (Acute) Subjective: Patient is a pleasant 39-year-old female who is resting comfortably in bed, alert and oriented x3. Patient reports improvement of symptoms from admission however still reports mild headache, nausea, vomiting. Denies fever, diarrhea, chest pain, shortness of breath, palpitations. - Physical Exam Vitals/I&O's: Vital Signs Temp Pulse Resp BP Pulse Ox 97.6 F L 77 18 109/67 97 11/06/20 16:33 11/06/20 16:33 11/06/20 16:33 11/06/20 16:33 11/06/20 16:33 Oxygen Delivery Method Room Air Weight: 158 lb 11.725 oz Body Mass Index (BMI) 27.1 Intake and Output for Last 24 Hours 11/04/20 11/05/20 11/06/20 23:59 23:59 23:59 Intake Total 1206 / 1506 2416.0 / 2416.0 Balance 1206 / 1506 2416.0 / 2416.0 General: Alert, Oriented x3, Cooperative HEENT: Atraumatic, PERRLA, EOMI, Normocephalic Neck: Supple, No JVD, Negative Carotid Bruits Lungs: Clear to auscultation, Normal air movement Cardiovascular: Regular rate, No murmurs Abdomen: Bowel Sounds Present, Soft, Non Tender Extremities: No edema, Capillary Refill Less than 3 Seconds Skin: No rashes, No breakdown, - - No evidence of inflammation around incised abscess; no induration, redness, warmth, tenderness Musculoskeletal: No Tenderness to Palpation of Joints or Extremities Neurological: Cranial nerves II-XII grossly intact Psych/Mental Status: Normal Affect, Appropriate Laboratory Results 11/05/20 18:34: WBC 11.1 H, RBC 3.92 L, Hgb 9.5 L, Hct 31.1 L, MCV 79.3 L, MCH 24.2 L, MCHC 30.5 L, RDW Std Deviation 49.5 H, RDW Coeff of Vicenta 17.2 H, Plt Count 296, MPV 8.8, Immature Gran % (Auto) 0.400, Neut % (Auto) 86.5 H, Lymph % (Auto) 7.1 L, [place] % (Auto) 5.2, Eos % (Auto) 0.5, Baso % (Auto) 0.3, Absolute Neuts (auto) 9.6 H, Absolute Lymphs (auto) 0.79 L, Nucleated RBC % 0 11/05/20 18:34: Sodium 136, Potassium 2.8 L, Chloride 104, Carbon Dioxide 25.0, Anion Gap 7, BUN 5 L, Creatinine 0.70, Estim Creat Clear Calc 93.17, Est GFR (MDRD) Af Amer 119, Est GFR (MDRD) Non-Af 98, BUN/Creatinine Ratio 7.1 L, Glucose 97, Calcium 8.3 L, Total Bilirubin 0.40, AST 42 H, ALT 35, Alkaline Phosphatase 82, Total Protein 7.3, Albumin 3.3, Globulin 4.0, Albumin/Globulin Ratio 0.8 L 11/05/20 18:34: Lactic Acid 0.8 11/05/20 18:45: Urine Color Yellow, Urine Clarity Sl. Cloudy, Urine pH 6.0, Ur Specific [place] 1.010, Urine Protein 15 H, Urine Glucose (UA) Normal, Urine Ketones Negative, Urine Occult Blood 50 H, Urine Nitrite Negative, Urine Bilirubin Negative, Urine Urobilinogen Normal, Ur Leukocyte Esterase 100 H, Urine RBC 0 SEEN, Urine WBC 0-5 SEEN, Ur Squamous Epith Cells 0-5 SEEN, Urine Bacteria RARE, Urine Mucus 0 SEEN 11/06/20 06:02: WBC 6.2, RBC 3.71 L, Hgb 8.9 L, Hct 30.2 L, MCV 81.4, MCH 24.0 L, MCHC 29.5 L, RDW Std Deviation 51.1 H, RDW Coeff of [place] 17.2 H, Plt Count 233, MPV 8.5, Immature Gran % (Auto) 0.200, Neut % (Auto) 79.7 H, Lymph % (Auto) 11.1 L, [place] % (Auto) 6.6, Eos % (Auto) 2.1, Baso % (Auto) 0.3, Absolute Neuts (auto) 5.0, Absolute Lymphs (auto) 0.69 L, Nucleated RBC % 0 11/06/20 06:02: Sodium 140, Potassium 3.2 L, Chloride 110 H, Carbon Dioxide 21.0, Anion Gap 9, BUN 6 L, Creatinine 0.65, Estim Creat Clear Calc 100.34, Est GFR (MDRD) Af Amer 129, Est GFR (MDRD) Non-Af 107, BUN/Creatinine Ratio 9.2 L, Glucose 134 H, Calcium 8.0 L Current Medications Docusate Sodium (Docusate Sodium 100 Mg Capsule) 100 mg PO DAILY [facility] Last Admin: 11/06/20 10:06 Dose: 100 mg Documented by: Enoxaparin Sodium (Enoxaparin 40 Mg/0.4 Ml Syringe) 40 mg SC DAILY [facility] Last Admin: 11/06/20 10:06 Dose: Not Given Documented by: Potassium Chloride/Sodium Chloride () 1,000 mls @ 75 mls/hr IV .[id number] [facility] Last Infusion: 11/06/20 16:21 Dose: Infused Documented by: Sodium Chloride () 250 mls @ 15 mls/hr IV .[id number] PRN PRN Reason: Saline Flush Sodium Chloride () 250 mls @ 15 mls/hr IV .[id number] PRN PRN Reason: Additional IVPB Infusion Ampicillin Sodium/Sulbactam (Sodium 3 gm/ Sodium Chloride) 112 mls @ 150 mls/hr IV Q6 [facility] Last Infusion: 11/06/20 12:57 Dose: Infused Documented by: Ketorolac Tromethamine (Ketorolac 15 Mg/Ml Vial) 15 mg IV Q6H PRN PRN PRN Reason: pain 4-10 Stop: 11/11/20 02:01 Last Admin: 11/06/20 11:17 Dose: 15 mg Documented by: Ondansetron HCl (Ondansetron 4 Mg/2 Ml Vial) 4 mg IV Q8H PRN PRN PRN Reason: NAUSEA/VOMITING Senna/Docusate Sodium (Senna/Docusate Sodium 1 Tablet) 2 tablet PO BID PRN PRN PRN Reason: Constipation Sodium Chloride (0.9% Saline Lock 10 Ml Syringe) 10 - 40 ml IV UD PRN PRN Reason: SALINE FLUSH Last Admin: 11/06/20 11:18 Dose: 10 ml Documented by: Discharge Activity: Return to Normal Activity Weight Bearing Status: Full weight bearing Home Medications: Medications to take at Discharge Docusate Sodium [Colace] 100 mg PO DAILY #20 capsule 11/04/20 Ondansetron [Zofran Odt] 4 mg PO Q8H PRN PRN #10 tablet 11/04/20 Oxycodone HCl/Acetaminophen [Percocet 5-325] 1 tablet PO Q6H PRN PRN 3 Days #12 tab 11/04/20 Amox/Clavulanate Tablet [Augmentin Tablet] 875 mg PO BIDAC #14 tab 11/06/20 Following Prescriptions Were Given to Patient: Amox/Clavulanate Tablet [Augmentin Tablet] 875 mg PO BIDAC #14 tab Transmission Status: Received by [facility] Primary Care Physician: Care Physician,No Primary [Primary Care Provider] - Please Follow Up With: Dax Bello MD When: Disposition: Home Patient Condition:: Good Medical Necessity - Tobacco Use Smoking Status: Current every day smoker Tobacco Use: Cigarettes Meaningful Use Info Meaningful Use Diagnoses (Choose all that apply): None applicable
[2020-11-06] MEDS: Amox/Clavulanate 875 MG Tablet PO (17:14)
--- NOTE | 2020-11-07 14:07 | CASEMGMT ---
ARMANDO WHALEY Discharge Follow-up Phone Call: MONSERRAT: José Luis Strata: 3 Call Date:11/07/20 Discharge Date:11/06/20 Time of Call:1405 Duration: 3 min Admitting Diagnosis:sepsis secondary to gluteal abscess ARMANDO WHALEY completed FU t/c after recent hospitalization. Pt states she is doing well. States she is getting her dressing changed. Pt was able to fill her script without difficulty. Pt is aware of her FU appt on with . Pt denies further questions or concerns and was pleased with her care at the hospital.
== END 2020-11-06 17:35 | disposition home or self-care (01) ==
LOC: ED 18:47 → MS3 11-06 07:13
PROVIDERS: Admitting Provider Hospitalist; Emergency Provider Emergency Medicine; Visit Provider Internal Medicine
DX: A41.9 Sepsis, unspecified organism (principal); L02.31 Cutaneous abscess of buttock; E87.6 Hypokalemia; F17.210 Nicotine dependence, cigarettes, uncomplicated; Z86.16 Personal history of COVID-19
CPT/HCPCS: 10060; 36415; 71045; 80048; 80053; 81001; 83605; 85025; 87040; 96361; 96365; 96366; 96367; 96374; 96375; 96376; 99218; 99285; 99406; J7030; J7040; A4216; G0378; J0295; J2405

== ENCOUNTER → 2021-02-08 10:04 | Outpatient (CLI) | payer MEDICAID, SELFPAY ==
[2021-02-08 13:27] LABS: Hematocrit 34.8 % (37-47); Mean Corp Hgb Conc 28.7 g/dL (32-36); Mean Corpuscular Hgb 23.1 pg (27.0-32.0); Mean Corpuscular Volume 80.6 fL (81-99); Mean Platelet Vol. 9.1 fl (6.2-12.0); Platelet Count 381 K/mm3 (150-450); RBC Distribution Width CV 18.5 % (11.6-14.6); RBC Distribution Width SD 54.1 fl (35.1-43.9); Red Blood Count 4.32 M/mm3 (4.2-5.4); White Blood Count 8.1 K/mm3 (4.4-11.0)
[2021-02-08 13:43] LABS: T4 Free Direct 0.82 ng/dL (0.76-1.46)
[2021-02-12 14:30] LABS: HPV APTIMA, High Risk Negative (Negative)
== END ==
PROVIDERS: Visit Provider Obstetrics & Gynecology
DX: N92.0 Excessive and frequent menstruation with regular cycle (principal)
CPT/HCPCS: 36415; 84439; 84443; 85027; 87624; 88175; G0145

== ENCOUNTER 2021-05-30 22:03 | Emergency (ER) | payer MEDICAID, SELFPAY ==
[2021-05-30 22:04] VITALS: BP 144/83; PULSE 101; RESP 18; TEMP 36.3; O2SAT 100; BMI 27.1
--- NOTE | 2021-05-30 23:06 | ED.RN ---
called for patient, pt nowhere to be found
== END 2021-05-30 23:08 | disposition left against medical advice (07) ==
LOC: ED 23:44
DX: Z53.21 Procedure and treatment not carried out due to patient leaving prior to being seen by health care provider (principal)

== ENCOUNTER 2021-06-03 16:04 | Emergency (ER) | payer MEDICAID, SELFPAY ==
[2021-06-03 16:05] VITALS: BP 111/64; PULSE 110; RESP 18; TEMP 36.8; O2SAT 100; BMI 25.7
--- NOTE | 2021-06-03 16:32 | EDS_ITS ---
HPI HPI - URI History of Present Illness Chief Complaint: Cough Informant: patient Onset/Context/Timing Onset: Weeks (4) Context: Gradual Onset Timing: Continuous Quality: Sharp Location: Left lower chest Worsened by: - (Coughing) Relieved by: - (Nothing) Associated Symptoms Associated Symptoms: Positive for Shortness of Breath, Chest Pain and Nonproductive cough; Negative for Nasal Congestion, Headache, Sinus Pressure, Nausea, Vomiting and Diarrhea Narrative Narrative: Patient presents with cough and left lower chest pain that has been getting worse over the last 4 weeks. Patient states her cough has been constant and persistent. Patient states her pain in her left lower chest is worse whenever she coughs. Patient denies any sputum production. Patient describes her pain as sharp. Patient denies any rhinorrhea or sore throat. Patient denies any fevers or chills. Patient denies any nausea or vomiting. ROS ROS ED Constitutional Constitutional ED: Denies chills or fever(s) Eyes Eyes: Denies blurry vision or change in vision ENT ENT ED: Denies rhinorrhea or sore throat Cardiovascular Cardiovascular: Denies chest pain or palpitations Respiratory/Chest Respiratory/Chest: Reports cough and dyspnea Gastrointestinal Gastrointestinal: Denies nausea or vomiting Genitourinary Genitourinary ED: Denies dysuria or hematuria Musculoskeletal Musculoskeletal: Denies back pain or neck pain Integumentary Denies abscess or rash Neurologic Neurologic: Denies headache(s) or weakness Allergic/Immunologic Allergic/Immunologic ED: Denies mouth swelling or urticaria PFSH PFSH Medical History no medical history no medical history Home Medications oxycodone-acetaminophen 1 tab PO Q6H PRN PRN 3 Days #12 tablet 06/03/21 [Rx Last Taken Unknown] Allergy/AdvReac Type Severity Reaction Status Date / Time coconut Allergy Other Verified 06/03/21 16:09 iodine Allergy Hives Verified 06/03/21 16:09 KIWI Allergy Other Uncoded 06/03/21 16:09 STRAWBERRIES AdvReac Other Uncoded 06/03/21 16:09 Surgical History H/O section History of carpal tunnel surgery History of tonsillectomy and adenoidectomy Hx of laparoscopy Hx of tympanostomy tubes Social History Smoking Status: Current every day smoker tobacco type: cigarettes EXAM Physical Exam Const Vital Signs: 06/03/21 16:05 06/03/21 16:49 Temperature 98.2 F Temperature Source Temporal Pulse Rate 110 H Respiratory Rate 18 Respiratory Effort Normal Respiratory Depth Normal Respiratory Pattern Normal Blood Pressure 111/64 Blood Pressure Mean 79 Pulse Ox 100 Oxygen Delivery Method Room Air Positive well nourished and well developed General Appearance ED: well developed HEENT Reports moist mucous membranes Neck supple and no JVD Resp normal respiratory effort and clear to auscultation bilaterally Cardio regular rate, regular rhythm and no murmurs Rate: regular rate Rhythm: regular rhythm GI normal to inspection, nondistended, normoactive bowel sounds, non-tender and non-distended Auscultation: normoactive bowel sounds Palpation: soft Extremity normal to inspection General Extremety ED: Negative for edema or tenderness General Extremity: Negative for edema Neuro oriented x3, CN's II-XII intact bilaterally and no sensory deficits noted Sensorium / Orientation: alert Motor Exam: strength 5/5 throughout Psych mental status grossly normal Skin no rashes or lesions noted Skin Narrative: There is a lipoma noted over the right scapular area. MDM MDM MDM Narrative Medical decision making narrative: Patient was given a dose of morphine here. X-rays of the left ribs were obtained. There are 5 views. On my interpretation, there is no acute fracture. There is no pneumothorax. There is no acute cardiopulmonary process. Radiologist also interpreted the x-ray and felt there may be some minor interstitial prominence of the lower lobes. Patient does not have any cough or fevers. I do not feel these are infiltrates. CBC and comprehensive metabolic profile were within normal limits. Patient was advised of her findings. Patient was given a prescription for a short course of Percocet. Patient was instructed to use ice to the area. Patient was instruc cole to take 10-15 deep breaths every hour while awake to prevent atelectasis and pneumonia. Patient was instructed to follow-up with her primary care physician in 5 to 7 days. Patient understood and was agreeable with the plan. All questions were answered. Lab Data Attestation: I reviewed the patient's lab results. Labs: Laboratory Results - last 24 hr 06/03/21 06/03/21 16:45 16:45 WBC 9.9 RBC 4.07 L Hgb 10.5 L Hct 33.8 L MCV 83.0 MCH 25.8 L MCHC 31.1 L RDW Std Deviation 50.4 H RDW Coeff of Vic[place] 16.8 H Plt Count 334 MPV 8.3 Immature Gran % (Auto) 0.300 Neut % (Auto) 65.9 Lymph % (Auto) 25.2 [place] % (Auto) 7.3 Eos % (Auto) 0.9 Baso % (Auto) 0.4 Absolute Neuts (auto) 6.5 Absolute Lymphs (auto) 2.49 Nucleated RBC % 0 Sodium 139 Potassium 3.7 Chloride 108 H Carbon Dioxide 25.0 Anion Gap 6 BUN 13 Creatinine 0.81 Estim Creat Clear Calc 79.72 Est GFR (MDRD) Af Amer 100 Est GFR (MDRD) Non-Af 83 BUN/Creatinine Ratio 16.0 Glucose 116 H Calcium 8.6 Total Bilirubin 0.20 AST 13 L ALT 17 Alkaline Phosphatase 73 Total Protein 7.3 Albumin 3.6 Globulin 3.7 Albumin/Globulin Ratio 1.0 Radiography Diagnostic Testing: Clinical Impression(s) from Imaging Studies Ribs w/Chest X-Ray 06/03/21 17:10 IMPRESSION: RIBS: Normal x-ray examination of the ribs. CHEST: Minor interstitial prominence in the lower lobes with slightly increased density more pronounced on the right possibly inflammatory however clinical correlation recommended Electronically Signed: Bang Padilla MD at 18:05 EDT , Service support , Discharge Plan Triage Chief Complaint: Cough ED Provider: Rico Sylvester Dx/Rx/DC Orders Clinical Impression: Upper respiratory infection, viral, Anterior chest wall pain Instructions: ED Chest Pain, Noncardiac, ED URI, Viral, No Abx (Adult) Prescriptions: New oxycodone-acetaminophen [oxycodone-acetaminophen] 1 TABLET tablet 1 tab PO Q6H PRN PRN (Reason: Pain) 3 Days Qty: 12 RF: 0 Primary Care Provider: Care Physician,No Primary Referrals: Marti Sanders MD [STAFF PHYSICIAN] - 5-7 Days Care Physician,No Primary [Primary Care Provider] - Disposition Disposition: Home, Self Care
[2021-06-03] MEDS: Morphine 4 MG/ML Syringe IV (16:47)
[2021-06-03 16:53] LABS: Absolute Lymphocyte Count 2.49 X10^3/uL (0.83-4.51); Absolute Neutrophil Count 6.5 X10^3/uL (2.0-7.7); Basophil# 0.04 X10^3/uL; Basophil% 0.4 % (0-1); Eosinophil# 0.09 X10^3/uL; Eosinophils% 0.9 % (0-5); Hematocrit 33.8 % (37-47); Hemoglobin 10.5 g/dL (12.0-15.0); Lymphocyte # 2.49 X10^3/ul (0.83-4.51); Lymphocyte % 25.2 % (19-41); Mean Corp Hgb Conc 31.1 g/dL (32-36); Mean Corpuscular Hgb 25.8 pg (27.0-32.0); Mean Platelet Vol. 8.3 fl (6.2-12.0); Monocyte# 0.72 X10^3/uL; Monocyte% 7.3 % (0-10); NRBC Flagged by Analyzer 0 % (0-5); Neutrophil # 6.52 X10^3/uL (2.7-7.7); Neutrophil % 65.9 % (47-70); Platelet Count 334 K/mm3 (150-450); RBC Distribution Width CV 16.8 % (11.6-14.6); RBC Distribution Width SD 50.4 fl (35.1-43.9); Red Blood Count 4.07 M/mm3 (4.2-5.4); White Blood Count 9.9 K/mm3 (4.4-11.0)
--- NOTE | 2021-06-03 17:10 | RAD_ITS ---
STUDY: X-RAY - UNILATERAL RIBS ( LEFT ) WITH CHEST REASON FOR EXAM: Female, 40 years old. Pain TECHNIQUE - RIBS: 4 view(s) of the ribs. TECHNIQUE - CHEST: PA COMPARISON: None. FINDINGS - RIBS: Normal visualized ribs without a demonstrated fracture. FINDINGS - CHEST: Minor interstitial thickening in the lower lobes slightly increased density slightly more pronounced on the right possibly representing inflammatory changes.. There is no demonstrated pleural abnormality. Normal size heart. Normal mediastinum and mercedes. Normal visualized pulmonary arteries. Normal visualized aortic arch and descending thoracic aorta. Normal visualized thoracic spine. Normal visualized ribs, clavicles, and shoulders. There is no demonstrated abnormality of the visualized soft tissue structures of the upper abdomen. RAD/Ribs Uni Min 3V w/PA Chest IMPRESSION: RIBS: Normal x-ray examination of the ribs. CHEST: Minor interstitial prominence in the lower lobes with slightly increased density more pronounced on the right possibly inflammatory however clinical correlation recommended Electronically Signed: Bang Padilla MD at 18:05 EDT , Service support ,
[2021-06-03 17:22] LABS: AST(SGOT) 13 U/L (15-37); Alanine Aminotransfer ALT/SGPT 17 U/L (13-56); Albumin, Serum 3.6 g/dL (3.2-5.0); Alkaline Phosphatase 73 U/L (45-117); Anion Gap 6 (5-15); BUN 13 mg/dL (7-18); Calcium,Total 8.6 mg/dL (8.5-10.1); Chloride 108 mmol/L (98-107); Creatinine, Serum 0.81 mg/dL (0.55-1.02); EST Glomerular Filtration Rate 83 mL/min (>60); Est Glom Filt Rate - Afr Amer 100 mL/min (>60); Estimated Creatinine Clearance 79.72 ml/min; Globulin 3.7 g/dL (2.2-4.2); Glucose 116 mg/dL (74-106); Potassium 3.7 mmol/L (3.5-5.1); Protein, Total 7.3 g/dL (6.4-8.2); Sodium Level 139 mmol/L (136-145)
[2021-06-03] MEDS: oxyCODONE 5 MG Tablet PO (19:03)
[2021-06-03 19:04] VITALS: BP 121/77; PULSE 73; RESP 16; O2SAT 98
== END 2021-06-03 19:05 | disposition home or self-care (01) ==
PROVIDERS: Emergency Provider Emergency Medicine
DX: J06.9 Acute upper respiratory infection, unspecified (principal); R07.89 Other chest pain; F17.210 Nicotine dependence, cigarettes, uncomplicated
CPT/HCPCS: 71101; 80053; 85025; 87426; 96374; 99284; A4216

== ENCOUNTER 2022-09-29 08:14 | Emergency (ER) | payer OTHER, SELFPAY ==
[2022-09-29 08:15] VITALS: BP 140/77; PULSE 94; RESP 16; TEMP 36.1; O2SAT 100; BMI 25.7
--- NOTE | 2022-09-29 08:23 | RAD_ITS ---
STUDY: X-RAY - RIGHT FOOT CLINICAL: Female, 41 years old. Pain after trauma TECHNIQUE: 3 view(s) of the foot. COMPARISON: None. FINDINGS: Acute minimally displaced fractures noted in the distal aspects of the fourth and fifth proximal phalanges with associated soft tissue swelling. Normal talus, calcaneus, and tarsal bones. Normal visualized subtalar, talonavicular, calcaneocuboid, tarsal and tarsometatarsal articulations. Normal metatarsi. Normal metatarsophalangeal joint of the great toe. Normal tibial and fibular sesamoid bones. Normal interphalangeal joint of the great toe. Normal phalanges of the great toe. Normal second through fifth metatarsophalangeal joints. Normal interphalangeal joints and remaining phalanges of the lesser toes. RAD/Foot min 3 Views IMPRESSION: Acute minimally displaced fractures in the distal aspects of the proximal fourth and fifth phalanges with soft tissue swelling Electronically Signed: Ben Ruiz MD at 8:35 EST ,
--- NOTE | 2022-09-29 08:23 | ED.VIS.LOWEX ---
HPI History of Present Illness Chief Complaint: Lower Extremity Injury Detail of Chief Complaint: Injury to right foot Informant: patient Narrative Narrative: Patient presents to the emergency department with an injury to her right foot. Patient states that a large can of soup fell off a shelf and landed on her right foot. Patient having hard time bearing weight secondary to pain. She denies other injuries. PFSH PFSH Home Medications oxycodone-acetaminophen 5 mg-325 mg tablet 1 tab PO Q6H PRN PRN Pain 3 days #12 TABLETS 06/03/21 [Rx Last Taken Unknown] hydrocodone-acetaminophen 5-325mg 5mg-325mg 1 tab PO Q4H PRN PRN Pain 2 days #10 TABLETS 09/29/22 [Rx Last Taken Unknown] Allergy/AdvReac Type Severity Reaction Status Date / Time coconut Allergy Other Verified 09/29/22 08:16 iodine Allergy Hives Verified 09/29/22 08:16 kiwi Allergy Other Verified 09/29/22 08:16 strawberry Allergy Other Verified 09/29/22 08:16 Surgical History H/O section History of carpal tunnel surgery History of tonsillectomy and adenoidectomy Hx of laparoscopy Hx of tympanostomy tubes Social History Smoking Status: Current every day smoker tobacco type: cigarettes ROS ROS ED Review of Systems ROS Unobtainable: other Constitutional Constitutional ED: Reports lethargy; Denies chills, fever(s), sweats or weight loss Eyes Eyes: Denies blurry vision, change in vision or diplopia ENT ENT ED: Denies rhinorrhea or sore throat Cardiovascular Cardiovascular: Denies chest pain, orthopnea or racing heartbeat Respiratory/Chest Respiratory/Chest: Denies cough, dyspnea, dyspnea on exertion, orthopnea or sputum Gastrointestinal Gastrointestinal: Denies abdominal pain, diarrhea, nausea or vomiting Genitourinary Genitourinary ED: Denies dysuria, hematuria or urinary frequency Musculoskeletal Musculoskeletal: Reports other Details: Right foot pain/injury ; Denies arthralgias, back pain, myalgias or neck pain Integumentary Denies abscess, Abrasions or rash Neurologic Neurologic: Denies headache(s) or weakness Psychiatric Psychiatric: Denies anxiety, depression or suicidal thoughts Endocrine Endocrinology: Denies polydipsia, polyphagia or polyuria Hematologic/Lymphatic Hematologic/Lymphatic: Denies easy bleeding, easy bruising or lymphadenopathy Allergic/Immunologic Allergic/Immunologic ED: Denies mouth swelling, tongue swelling or urticaria EXAM Physical Exam Const Vital Signs: 09/29/22 08:15 Temperature 96.9 F L Temperature Source Temporal Pulse Rate 94 Respiratory Rate 16 Blood Pressure 140/77 H Blood Pressure Mean 98 Pulse Ox 100 Oxygen Delivery Method Room Air Positive well nourished and well developed General Appearance ED: well developed and NAD HEENT Reports TM's clear and moist mucous membranes normocephalic and atraumatic; Negative for trauma or tenderness Tympanic Membrane ED: Yes TM's clear Eyes PERRL and EOMs intact bilaterally General Eye ED: Negative for pale conjunctiva or scleral icterus Neck no lymphadenopathy, supple and no JVD General: Negative for tenderness Chest Wall inspection of chest normal and palpation of chest normal Chest: Negative for tenderness Resp normal respiratory effort and clear to auscultation bilaterally Effort and Inspection: Negative for respiratory distress or pain with movement Auscultation: Negative for rhonchi, wheezes or diminished lung sounds Cardio regular rate, regular rhythm, S1 normal heart sound, S2 normal heart sound and no murmurs Peripheral Pulses: pulses 2+ throughout GI normal to inspection, nondistended, normoactive bowel sounds, soft to palpation, non-tender, non-distended and no masses Back/Spine no CVA tenderness and no thoracic nor lumbar tenderness Extremity Extremity Narrative: Right foot-patient has some faint ecchymosis and bruising over the fourth and fifth MTP joints with superficial abrasion noticed over the fourth MTP joint. Decreased range of motion of toe secondary to pain. No obvious deformity noted. She is neurovascular intact. General Extremety ED: Negative for edema General Extremity: Negative for edema Neuro oriented x3, CN's II-XII intact bilaterally, no sensory deficits noted and gait normal Sensorium / Orientation: awake, alert, oriented to person, oriented to place and oriented to time Motor Exam: strength 5/5 throughout and strength abnormal Psych mental status grossly normal Skin no rashes or lesions noted and no wounds MDM MDM MDM Narrative Medical decision making narrative: Patient with fracture of toes 4 and 5 on x-ray. She will have the toes gabrielle taped and she will be given a postop shoe as well as crutches. She did not want anything for pain in the department. Patient will be given a prescription for hydrocodone for home. Patient will be referred to podiatry for follow-up. Radiography Diagnostic Testing: Clinical Impression(s) from Imaging Studies Foot X-Ray 09/29/22 08:23 IMPRESSION: Acute minimally displaced fractures in the distal aspects of the proximal fourth and fifth phalanges with soft tissue swelling Electronically Signed: Ben Ruiz MD at 8:35 EST , Three-view x-rays of right foot obtained interpreted by myself is fractures of the proximal phalanx of fourth and fifth toes that are slightly displaced. Radiology was in agreement. Discharge Plan Triage Chief Complaint: Lower Extremity Injury ED Provider: Lamberto Plascencia Dx/Rx/DC Orders Clinical Impression: Closed fracture of toe Instructions: ED Fracture, Toe, Closed Prescriptions: New hydrocodone-acetaminophen [hydrocodone-acetaminophen] 5-325 mg tablet 1 tab PO Q4H PRN PRN (Reason: Pain) 2 Days Qty: 10 0RF No Action oxycodone-acetaminophen [oxycodone-acetaminophen] 1 TABLET tablet 1 tab PO Q6H PRN PRN (Reason: Pain) 3 Days Qty: 12 0RF Primary Care Provider: Care Physician,No Primary Referrals: Kyle Dutta DPM [Med Staff - Active Staff] - 5-7 Days Care Physician,No Primary [Primary Care Provider] - Disposition Disposition: Home, Self Care
== END 2022-09-29 09:24 | disposition home or self-care (01) ==
PROVIDERS: Emergency Provider Emergency Medicine; Visit Provider Emergency Medicine
DX: S92.919A Unspecified fracture of unspecified toe(s), initial encounter for closed fracture (principal); F17.210 Nicotine dependence, cigarettes, uncomplicated; W22.8XXA Striking against or struck by other objects, initial encounter
CPT/HCPCS: 73630; 99284